=== PATIENT | male | born 1935 | race Caucasian/White ===

== ENCOUNTER 2017-03-31 09:25 | Inpatient (IN) | payer MEDICARE, OTHER ==
[2017-03-31] VITALS (12 sets, daily range): BP systolic 62–113; BP diastolic 51–84
[~2017-03-31] VITALS: Ht 170.2 cm; Wt 55.0 kg
[~2017-03-31 09:25] MED LIST: ASPI-630 PO; ATOR40TA59 PO; CIPR500T94 PO; FINA5TAB4 PO; FURO20TA3 PO; METO25TA9 PO; OLOD4MIS2 IH; TAMS0.4C2 PO
[2017-03-31] MEDS ORDERED: IV NORMAL SALINE 1000ML BAG 1,000 ML IV SCH (09:32)
[2017-03-31 09:42] LABS: BASO % 0 % (0-3); EOS % 0 % (0-3); HEMOGLOBIN 11.5 g/dL (13.0-17.5); LYMPH # 0.3 x10^3/uL (1.0-4.8); LYMPH % 3 % (24-48); MEAN CORPUSCULAR HEMOGLOBIN 29 pg (25-35); MEAN CORPUSCULAR HGB CONC 33 g/dL (31-37); MEAN CORPUSCULAR VOLUME 89 fL (79-100); MONO % 4 % (0-9); NEUT % 92 % (31-73); PLATELET COUNT 181 x10^3/uL (140-400); RED BLOOD COUNT 3.95 x10^6/uL (4.30-5.70); RED CELL DISTRIBUTION WIDTH 16.4 % (11.5-14.5); WHITE BLOOD COUNT 9.1 x10^3/uL (4.0-11.0)
[2017-03-31] MEDS ORDERED: fentaNYL PF VIAL 100 MCG/2 ML VIAL IV ONE (09:45)
[2017-03-31] MEDS ORDERED: methylPREDNISolone SOD SUCC PF 125 MG/2 ML VIAL. IV ONE (09:45)
[2017-03-31] MEDS ORDERED: IPRATRPIUM/ALBUTEROL 0.5/2.5MG 3 ML NEBU. NEB ONE (09:45)
--- NOTE | 2017-03-31 09:46 | PHYS DOC ---
Past Medical History Past Medical History: CAD, Cancer, CHF, COPD, [place] Additional Past Medical Histor: breast ca Past Surgical History: Cancer Surgery, Other Additional Past Surgical Histo: heart stents Alcohol Use: None Drug Use: None Adult General Chief Complaint Chief Complaint: SHORTNESS OF BREATH HPI HPI Patient is a 81 year old male who presents by EMS for dyspnea. He was brought from home with respiratory distress. He notes gradually worsening cough and dyspnea for the past week. He wears NC 4.5L at home and was found to be in upper 80s with increased work of breathing, so was placed on CPAP. EMS also placed nitro paste to chest wall for suspected Pulm Edema with CHF; this was removed upon arrival for hypotension. He states he is having trouble with his home O2 machine. He denies sputum production, hemoptysis, rhinorrhea, nasal congestion, sore throat, chest pain, back pain, palpitations, diaphoresis, lightheadedness, nausea or vomiting, fever or chills, pain or swelling, abdominal pain, diarrhea, dysuria. Review of Systems Review of Systems Constitutional: Denies fever or chills [] Eyes: Denies change in visual acuity, redness, or eye pain [] HENT: Denies nasal congestion or sore throat [] Respiratory: Has cough and shortness of breath [] Cardiovascular: No additional information not addressed in HPI [] GI: Denies abdominal pain, nausea, vomiting, bloody stools or diarrhea [] : Denies dysuria or hematuria [] Musculoskeletal: Denies back pain or joint pain [] Integument: Denies rash or skin lesions [] Neurologic: Denies headache, focal weakness or sensory changes [] Endocrine: Denies polyuria or polydipsia [] Current Medications Current Medications Current Medications Medications (Trade) Dose Ordered Sig/South Start Time Stop Time Status Last Admin Dose Admin Albuterol/ Ipratropium (Duoneb) 3 ml 1X ONCE 03/31/17 09:45 03/31/17 09:46 DC 03/31/17 09:40 3 ML Fentanyl Citrate (Fentanyl 2ml Vial) 25 mcg 1X ONCE 03/31/17 09:45 03/31/17 09:46 DC 03/31/17 09:39 25 MCG Levofloxacin/ Dextrose 100 ml @ 100 mls/hr 1X ONCE 03/31/17 10:45 03/31/17 11:44 DC 03/31/17 11:04 100 MLS/HR Levofloxacin/ Dextrose (Levaquin Per Pharmacy) 1 each PRN DAILY PRN 03/31/17 10:30 UNV Methylprednisolone Sodium Succinate (SOLU-Medrol 125MG VIAL) 125 mg 1X ONCE 03/31/17 09:45 03/31/17 09:46 DC 03/31/17 09:40 125 MG Piperacillin Sod/ Tazobactam Sod (Zosyn Per Pharmacy) 1 each PRN DAILY PRN 03/31/17 10:30 UNV Sodium Chloride 1,000 ml @ 125 mls/hr Q8H 03/31/17 10:30 03/31/17 13:19 03/31/17 11:15 125 MLS/HR Vancomycin HCl (Vanco Per Pharmacy) 1 each PRN DAILY PRN 03/31/17 10:30 UNV Allergies Allergies Allergies Coded Allergies Type Severity Reaction Last Updated Verified No Known Drug Allergies 02/02/17 No Physical Exam Physical Exam Constitutional: Thin, severe distress, non-toxic appearance. [] HENT: Normocephalic, atraumatic, bilateral external ears normal, oropharynx moist, no oral exudates, nose normal. [] Eyes: PERRLA, EOMI, conjunctiva normal, no discharge. [] Neck: Normal range of motion, supple, no stridor. [] Cardiovascular: Regular tachycardia [] Lungs & Thorax: Bilateral course breath sounds, frequent wet cough, tachypnea, speaks in 2 word sentences, mild wheezing [] Abdomen: Bowel sounds normal, soft, no tenderness. [] Skin: Warm, dry, no erythema, no rash. [] Back: No tenderness, no CVA tenderness. [] Extremities: No tenderness, ROM intact, trace bilateral pretibial edema. [] Neurologic: Alert and oriented X 3, normal motor function, normal sensory function, no focal deficits noted. [] Psychologic: Affect normal, judgement normal, mood normal. [] Current Patient Data Vital Signs Vital Signs Date Time Temp Pulse Resp B/P (MAP) Pulse Ox O2 Delivery O2 Flow Rate FiO2 03/31/17 10:33 95 30 77/65 (69) 96 Venturi Mask 03/31/17 09:28 99.9 4.0 99.9 Lab Values Laboratory Tests Test 03/31/17 09:32 03/31/17 10:45 White Blood Count 9.1 x10^3/uL (4.0-11.0) Red Blood Count 3.95 x10^6/uL (4.30-5.70) L Hemoglobin 11.5 g/dL (13.0-17.5) L Hematocrit 35.0 % (39.0-53.0) L Mean Corpuscular Volume 89 fL (79-100) Mean Corpuscular Hemoglobin 29 pg (25-35) Mean Corpuscular Hemoglobin Concent 33 g/dL (31-37) Red Cell Distribution Width 16.4 % (11.5-14.5) H Platelet Count 181 x10^3/uL (140-400) Neutrophils (%) (Auto) 92 % (31-73) H Lymphocytes (%) (Auto) 3 % (24-48) L Monocytes (%) (Auto) 4 % (0-9) Eosinophils (%) (Auto) 0 % (0-3) Basophils (%) (Auto) 0 % (0-3) Neutrophils # (Auto) 8.4 x10^3uL (1.8-7.7) H Lymphocytes # (Auto) 0.3 x10^3/uL (1.0-4.8) L Monocytes # (Auto) 0.3 x10^3/uL (0.0-1.1) Eosinophils # (Auto) 0.0 x10^3/uL (0.0-0.7) Basophils # (Auto) 0.0 x10^3/uL (0.0-0.2) Platelet Estimate Pending Sodium Level 137 mmol/L (136-145) Potassium Level 4.9 mmol/L (3.5-5.1) Chloride Level 100 mmol/L (98-107) Carbon Dioxide Level 27 mmol/L (21-32) Anion Gap 10 (6-14) Blood Urea Nitrogen 20 mg/dL (8-26) Creatinine 1.2 mg/dL (0.7-1.3) Estimated GFR (Cockcroft-Gault) 58.1 BUN/Creatinine Ratio 17 (6-20) Glucose Level 125 mg/dL (70-99) H Lactic Acid Level 3.4 mmol/L (0.4-2.0) H Calcium Level 9.9 mg/dL (8.5-10.1) Total Bilirubin 0.9 mg/dL (0.2-1.0) Aspartate Amino Transferase (AST) 49 U/L (15-37) H Alanine Aminotransferase (ALT) 35 U/L (16-63) Alkaline Phosphatase 130 U/L (46-116) H Troponin I Quantitative 0.433 ng/mL (0.000-0.055) JD-Iuq-B-Type Natriuretic Peptide 93962 pg/mL (0-449) H Total Protein 7.4 g/dL (6.4-8.2) Albumin 3.0 g/dL (3.4-5.0) L Albumin/Globulin Ratio 0.7 (1.0-1.7) L O2 Saturation 96 % (92-99) Arterial Blood pH 7.43 (7.35-7.45) Arterial Blood pCO2 at Patient Temp 33 mmHg (35-46) L Arterial Blood pO2 at Patient Temp 90 mmHg (65-108) Arterial Blood HCO3 22 mmol/L (21-28) Arterial Blood Base Excess -2 mmol/L (-3-3) Oxyhemoglobin 95.5 % Methemoglobin 0.6 % (0.0-1.9) Carbon Monoxide, Quantitative 0.1 % (0.0-1.9) FiO2 40.0 Laboratory Tests 03/31/17 09:32 Laboratory Tests 03/31/17 09:32 EKG EKG EKG as interpreted by me as sinus tachycardia, rate 120, depressions in lateral leads, no ST elevations, PVCs Radiology/Procedures Radiology/Procedures Chest x-ray as interpreted by me as mild pulmonary edema bilaterally, no focal infiltrate Course & Med Decision Making Course & Med Decision Making Pertinent Labs and Imaging studies reviewed. (See chart for details) He presented respiratory distress and was placed on BiPAP. He was weaned off of BiPAP to Venturi mask in the emergency department. His work of breathing has improved, but he still has frequent cough. He was given IV fluids for concern of severe sepsis associated with COPD exacerbation. He was given broad spectrum antibiotics for this as well. His laboratory evaluation reveals elevated proBNP and elevated troponin, concerning for heart strain associated with acute on chronic hypoxemic respiratory failure. He has left shift and lactic acidosis. ABG reveals hypoxemia. He will be admitted to the ICU for further therapy. He was given dose of lovenox for elevated troponin. Discussed case with ANA Armenta cardiology, who recommends slowing fluids and starting levophed for hypotension. Discussed case with Dr. Watt, who will admit. Scottie Disclaimer Maryon Disclaimer This electronic medical record was generated, in whole or in part, using a voice recognition dictation system. Critical Care Time Critical care time was 40 minutes exclusive of procedures. Departure Departure Impression: Primary Impression: Respiratory failure Additional Impressions: Severe sepsis COPD exacerbation CHF exacerbation Disposition: 09 ADMITTED INPATIENT Condition: CRITICAL Referrals: UNKNOWN PCP NAME (PCP) Problem Qualifiers Primary Impression: Respiratory failure Chronicity: acute on chronic Respiratory failure complication: hypoxia Qualified Codes: J96.21 - Acute and chronic respiratory failure with hypoxia Additional Impressions: CHF exacerbation Congestive heart failure type: unspecified congestive heart failure type Qualified Codes: I50.9 - Heart failure, unspecified Jonnathan WHITFIELD MD Mar 31, 2017 09:46
[2017-03-31 09:53] LABS: CALCIUM 9.9 mg/dL (8.5-10.1); CREATININE 1.2 mg/dL (0.7-1.3); GFR 58.1; POTASSIUM 4.9 mmol/L (3.5-5.1)
[2017-03-31 09:59] LABS: ALBUMIN/GLOBULIN RATIO 0.7 (1.0-1.7); TOTAL BILIRUBIN 0.9 mg/dL (0.2-1.0); TOTAL PROTEIN 7.4 g/dL (6.4-8.2)
--- NOTE | 2017-03-31 09:59 | RAD ---
Portable chest, 03/31/2017: History: Cough, dyspnea Comparison is made to a study from 02/02/2017. The heart is at the upper limits of normal in size. There is calcific plaquing of the aorta. The pulmonary vascularity is prominent with loss of vascular margination. There are minimal perihilar opacities. The findings suggest mild parahilar-perivascular pulmonary edema. A component of fibrosis cannot be excluded. More extensive basilar opacities were present on the previous study. No definite pleural fluid is seen. IMPRESSION: Mild ongoing or recurrent pulmonary edema, improved since 02/02/2017.
--- NOTE | 2017-03-31 10:05 | EKG ---
[address] [place] [address] Test Date: 2017-03-31 Test Time: 10:15:14 Pat Name: ZEESHAN TAI Department: Room: Gender: M [employer] Member: : 1935 Requested By: Jonnathan WHITFIELD Order Number: [id number] Reading MD: Jenise Thompson Measurements Intervals Admire Rate: 120 P: 52 IA: 120 QRS: 21 QRSD: 90 T: 93 QT: 322 QTc: 460 Interpretive Statements SINUS TACHYCARDIA VENTRICULAR PREMATURE COMPLEX(ES) LOW LIMB LEAD VOLTAGE ST & T ABNORMALITY, CONSIDER ANTEROLATERAL ISCHEMIA Electronically Signed On 04-02-2017 22:36:27 CDT by Jenise Thompson
[2017-03-31] MEDS ORDERED: IV NORMAL SALINE 1000ML BAG 1,620 ML IV SCH (10:19)
[2017-03-31] MEDS: IV NORMAL SALINE 1000ML BAG 1,000 ML IV SCH ×2 (10:30→11:15)
[2017-03-31] MEDS ORDERED: PIP/TAZO PER PHARMACY MC PRN (10:30)
[2017-03-31] MEDS ORDERED: levOFLOXacin PER PHARMACY. MC PRN (10:30)
[2017-03-31 10:46] LABS: BASE EXCESS COOX -2 mmol/L (-3-3); CARBON MONOXIDE 0.1 % (0.0-1.9); HCO3 COOX 22 mmol/L (21-28); METHEMOGLOBIN 0.6 % (0.0-1.9); OXYHEMOGLOBIN 95.5 %; PCO2 COOX 33 mmHg (35-46); PH COOX 7.43 (7.35-7.45); PO2 COOX 90 mmHg (65-108); SAT O2 COOX 96 % (92-99); TOTAL HEMOGLOBIN 11.2 g/dL
--- NOTE | 2017-03-31 10:46 | ACF ---
Admission Forms Criteria RESPIRATORY FAILURE [facility] Clinical Indications for Admission to Inpatient Care (Place 'X' for any and all applicable criteria): Hospital admission is needed for appropriate care of the patient because of acute respiratory failure or insufficiency as indicated by ANY ONE of the following(1)(2)(3)(4)(5)(6)(7)(8): [X]I. Mechanical ventilation needed (acute invasive or noninvasive) [ ]II. Severe ventilation deficit as indicated by ANY ONE of the following (9) [ ]a) Respiratory acidosis (pH less than 7.32 and partial pressure of carbon dioxide greater than 40 mm Hg (5.3 kPa)) [ ]b) Partial pressure of carbon dioxide greater than 44 mm Hg (5.9 kPa ) (new) [ ]c) Airflow measurements less than 25% of predicted (eg, peak expiratory flow rate less than 100 L/minute) [ ]d) Forced vital capacity less than 15 mL/kg of ideal body weight, or 50% decrease in vital capacity from baseline [ ]III. Noncardiac pulmonary edema not resolving with rapid emergency treatment (8) [ ]IV. Severe respiratory distress as indicated by ANY ONE of the following: [ ]a) Severe tachypnea (respiratory rate greater than 30, greater than 45 for 6-month-old, greater than 60 for ) [ ]b) Severe hypoxemia (partial pressure of oxygen less than 50 mm Hg ( 6.7 kPa) on greater than 50% oxygen or partial pressure of oxygen to FIO2 ratio less than 200) [ ]c) Mental status deterioration from respiratory disease [ ]V. Airway obstruction or inadequate protection [A](10)(11) The original [employer] content created by [employer] has been revised. The portions of the content which have been revised are identified through the use of italic text or in bold, and [employer] has neither reviewed nor approved the modified material. All other unmodified content is copyright [employer]. Please see references footnoted in the original [employer] edition 2016 Admission Criteria Met?: Yes KATHY THAPA Mar 31, 2017 10:46
[2017-03-31] MEDS ORDERED: VANCOMYCIN 1.25 GM in IV NORMAL SALINE 250ML 250 ML IV ONE (11:00)
[2017-03-31] MEDS ORDERED: PIPERACILLIN/TAZOBACTAM 3.375 GM in IV NORMAL SALINE 50ML 50 ML IV ONE (11:00)
[2017-03-31] MEDS ORDERED: ACETAMINOPHEN 325 MG TABLET. PO PRN (11:15)
[2017-03-31] MEDS ORDERED: ONDANSETRON PF 4 MG/2 ML VIAL. IV PRN (11:15)
[2017-03-31] MEDS ORDERED: NOREPINEPHRIN PREMIX 250 ML IV ONE ×2 (11:15→16:22)
[2017-03-31] MEDS ORDERED: fentaNYL PF VIAL 100 MCG/2 ML VIAL IV PRN (11:15)
[2017-03-31 12:36] LABS: % EOS 1 % (0-5); PLT ESTIMATE ADEQUATE (ADEQUATE)
[2017-03-31 12:37] LABS: ANISOCYTOSIS PRESENT
[2017-03-31] MEDS ORDERED: FUROSEMIDE 20 MG/2 ML VIAL. IVP ONE ×2 (12:45→18:00)
[2017-03-31] MEDS ORDERED: DIGOXIN IV 500 MCG/2 ML AMPUL. IV ONE (12:45)
--- NOTE | 2017-03-31 13:12 | PDOC2 ---
CARDIAC CONSULT DATE OF CONSULT Date of Consult DATE: 03/31/17 TIME: 12:42 REASON FOR CONSULT Reason for Consult: CHF exacerbation REFERRING PHYSICIAN Referring Physician: Dr. Alessandro Juarez SOURCE Source: Chart review, Patient HISTORY OF PRESENT ILLNESS HISTORY OF PRESENT ILLNESS 81 year old male admitted through the ER with hypoxia and dyspnea. Progressive symptoms over the past week. Discharge 02/02/2017 after 5 day stay for NSTEMI, type II, acute respiratory failure and acute CHF. LVEF ~ 20% with severe global hypokinesis. EKG sinus tach and tele now with PAF. Troponin level 0.433 in the setting of sepsis and acute heart failure. Hypotensive and started on Levophed in ER. Denies CP and recent lower extremity edema. Reason for Visit: acute CHF PAST MEDICAL HISTORY Cardiovascular: AFIB (paroxysmal), CAD (remote history of stenting - details unknown), CHF (chronic systolic; LVEF ~ 20% with severe global hypokinesis), HTN , [place] (NSTEMI - 01/2017; type II), Hyperlipidemia, Other (presumed ischemic cardiomyopathy) Pulmonary: COPD, Other (acute/chronic resp failure; severe pulmonary HTN with PA of 62 mm Hg) CENTRAL NERVOUS SYSTEM: Other (none known) GI: No pertinent hx Heme/Onc: Cancer Hepatobiliary: No pertinent hx Psych: No pertinent hx Musculoskeletal: Osteoarthritis Rheumatologic: No pertinent hx Infectious disease: No pertinent hx ENT: No pertinent hx Renal/: No pertinent hx Endocrine: No pertinent hx Dermatology: No pertinent hx PAST SURGICAL HISTORY Past Surgical History: Other ([facility] with stents to unknown targets) FAMILY HISTORY Family History: Family History Unknown SOCIAL HISTORY Smoke: <1 pack per day ALCOHOL: none Drugs: None Lives: Roommate CURRENT MEDICATIONS CURRENT MEDICATIONS Current Medications Medications (Trade) Dose Ordered Sig/South Route PRN Reason Start Time Stop Time Status Last Admin Dose Admin Sodium Chloride 1,000 ml @ 500 mls/hr Q2H IV 03/31/17 09:32 03/31/17 11:31 DC 03/31/17 09:38 Albuterol/ Ipratropium (Duoneb) 3 ml 1X ONCE NEB 03/31/17 09:45 03/31/17 09:46 DC 03/31/17 09:40 Methylprednisolone Sodium Succinate (SOLU-Medrol 125MG VIAL) 125 mg 1X ONCE IV 03/31/17 09:45 03/31/17 09:46 DC 03/31/17 09:40 Fentanyl Citrate (Fentanyl 2ml Vial) 25 mcg 1X ONCE IV 03/31/17 09:45 03/31/17 09:46 DC 03/31/17 09:39 Sodium Chloride 1,620 ml @ 540 mls/hr Q3H IV 03/31/17 10:19 03/31/17 10:25 DC 03/31/17 10:23 Sodium Chloride 1,000 ml @ 125 mls/hr Q8H IV 03/31/17 10:30 03/31/17 13:19 03/31/17 11:15 Levofloxacin/ Dextrose 100 ml @ 100 mls/hr 1X ONCE IV 03/31/17 10:45 03/31/17 11:44 DC 03/31/17 11:04 Vancomycin HCl 1.25 gm/Sodium Chloride 250 ml @ 166.667 mls/hr 1X ONCE IV 03/31/17 11:00 03/31/17 12:29 DC 03/31/17 12:23 Piperacillin Sod/ Tazobactam Sod 3.375 gm/Sodium Chloride 50 ml @ 100 mls/hr 1X ONCE IV 03/31/17 11:00 03/31/17 11:29 DC 03/31/17 10:58 Enoxaparin Sodium (Lovenox 60mg Syringe) 50 mg 1X ONCE SQ 03/31/17 11:15 03/31/17 11:18 DC 03/31/17 11:31 Norepinephrine Bitartrate 250 ml @ 0 mls/hr 1X ONCE IV 03/31/17 11:15 03/31/17 11:19 DC 03/31/17 11:26 ALLERGIES ALLERGIES: Coded Allergies: No Known Drug Allergies (Unverified , 02/02/17) ROS Review of System ROS limited by profound dyspnea with speech; see HPI PHYSICAL EXAM General: Alert, Cooperative, severe distress HEENT: Atraumatic, PERRLA Lungs: Other (wheezing in upper lobes anteriorly; crackles in bases anteriorly) Heart: Normal S1, Normal S2, Other (2/6 systolic murmur LLSB; unable to auscultate for carotid bruits over respiratory sounds) Abdomen: Normal bowel sounds, Soft Extremities: No edema, Normal pulses Skin: No rashes Neuro: Normal speech Psych/Mental Status: Mood NL MUSCULOSKELETAL: Osteoarthritic changes both hands VITALS VITALS Vital Signs Date Time Temp Pulse Resp B/P (MAP) Pulse Ox O2 Delivery O2 Flow Rate FiO2 03/31/17 12:30 30 94 Venturi Mask 03/31/17 12:20 110 78/58 (65) 12.0 03/31/17 11:56 98.5 98.5 LABS Lab: Laboratory Tests Test 03/31/17 09:32 03/31/17 10:45 White Blood Count 9.1 x10^3/uL (4.0-11.0) Red Blood Count 3.95 x10^6/uL (4.30-5.70) Hemoglobin 11.5 g/dL (13.0-17.5) Hematocrit 35.0 % (39.0-53.0) Mean Corpuscular Volume 89 fL (79-100) Mean Corpuscular Hemoglobin 29 pg (25-35) Mean Corpuscular Hemoglobin Concent 33 g/dL (31-37) Red Cell Distribution Width 16.4 % (11.5-14.5) Platelet Count 181 x10^3/uL (140-400) Neutrophils (%) (Auto) 92 % (31-73) Lymphocytes (%) (Auto) 3 % (24-48) Monocytes (%) (Auto) 4 % (0-9) Eosinophils (%) (Auto) 0 % (0-3) Basophils (%) (Auto) 0 % (0-3) Neutrophils # (Auto) 8.4 x10^3uL (1.8-7.7) Lymphocytes # (Auto) 0.3 x10^3/uL (1.0-4.8) Monocytes # (Auto) 0.3 x10^3/uL (0.0-1.1) Eosinophils # (Auto) 0.0 x10^3/uL (0.0-0.7) Basophils # (Auto) 0.0 x10^3/uL (0.0-0.2) Segmented Neutrophils % 89 % (35-66) Band Neutrophils % 5 % (0-9) Lymphocytes % 4 % (24-48) Monocytes % 1 % (0-10) Eosinophils % 1 % (0-5) Platelet Estimate Adequate (ADEQUATE) Anisocytosis Present Sodium Level 137 mmol/L (136-145) Potassium Level 4.9 mmol/L (3.5-5.1) Chloride Level 100 mmol/L (98-107) Carbon Dioxide Level 27 mmol/L (21-32) Anion Gap 10 (6-14) Blood Urea Nitrogen 20 mg/dL (8-26) Creatinine 1.2 mg/dL (0.7-1.3) Estimated GFR (Cockcroft-Gault) 58.1 BUN/Creatinine Ratio 17 (6-20) Glucose Level 125 mg/dL (70-99) Lactic Acid Level 3.4 mmol/L (0.4-2.0) Calcium Level 9.9 mg/dL (8.5-10.1) Total Bilirubin 0.9 mg/dL (0.2-1.0) Aspartate Amino Transf (AST/SGOT) 49 U/L (15-37) Alanine Aminotransferase (ALT/SGPT) 35 U/L (16-63) Alkaline Phosphatase 130 U/L (46-116) Troponin I Quantitative 0.433 ng/mL (0.000-0.055) ZY-Udk-D-Type Natriuretic Peptide 57394 pg/mL (0-449) Total Protein 7.4 g/dL (6.4-8.2) Albumin 3.0 g/dL (3.4-5.0) Albumin/Globulin Ratio 0.7 (1.0-1.7) O2 Saturation 96 % (92-99) Arterial Blood pH 7.43 (7.35-7.45) Arterial Blood pCO2 at Patient Temp 33 mmHg (35-46) Arterial Blood pO2 at Patient Temp 90 mmHg (65-108) Arterial Blood HCO3 22 mmol/L (21-28) Arterial Blood Base Excess -2 mmol/L (-3-3) Oxyhemoglobin 95.5 % Methemoglobin 0.6 % (0.0-1.9) Carbon Monoxide, Quantitative 0.1 % (0.0-1.9) FiO2 40.0 IMAGES IMAGES CXR: Comparison is made to a study from 02/02/2017. The heart is at the upper limits of normal in size. There is calcific plaquing of the aorta. The pulmonary vascularity is prominent with loss of vascular margination. There are minimal perihilar opacities. The findings suggest mild parahilar-perivascular pulmonary edema. A component of fibrosis cannot be excluded. More extensive basilar opacities were present on the previous study. No definite pleural fluid is seen. IMPRESSION: Mild ongoing or recurrent pulmonary edema, improved since 02/02/2017. EKG EKG no acute changes; ST tele with PAF ECHOCARDIOGRAM ECHOCARDIOGRAM 02/02/2017: TTE: The Left Ventricle is mild to moderately dilated. Left ventricle systolic function is severely impaired. The Ejection Fraction is less than 20%. There is severe global hypokinesis of the left ventricle. There is no significant aortic valvular stenosis. Doppler and Color Flow revealed no significant aortic regurgitation. Doppler and Color-flow revealed mild to moderate mitral regurgitation. Doppler and Color Flow revealed mild to moderate tricuspid regurgitation. There is severe pulmonary hypertension. The PA pressure was estimated at 62 mmHg. There is no evidence of significant pericardial effusion. ASSESSMENT/PLAN ASSESSMENT/PLAN 1. acute on chronic systolic heart failure LVEF depressed about 20% was bolused with ~ 1500 cc in ER due to sepsis protocol CXR with CHF (increase pulm vascularity) and NT-proBNP > 21K give IV furosemide 20 mg IV now - may need to give albumin to move fluid to intravascular space for maximal diuresis or try bumex re-evaluate later today and consider repeating IV diuretics then cheung cath as pt weak, dyspneic and giving IV diuretics IV digoxin X 1 for symptom relief 2. ? sepsis lactic acid 3.4; WBC WNL check UA with culture - treated for UTI in January vasopressors for BP support 3. PAF rates to the 130s will give digoxin 0.5 mg IV X 1 - address heart rate and CHF 4. elevated troponin in the setting of sepsis, acute heart failure, acute respiratory failure and tachycardia severity of illness precludes aggressive evaluation/intervention 5. acute/chronic respiratory failure/severe pulm HTN on venti mask defer to pulm 6. CAD remote history of stents to unknown targets 7. presumed ischemic cardiomyopathy previously treated with BB; BP would not support ACEI Prognosis guarded; consult palliative care - pt would benefit from hospice ? DNR in the outpatient setting - defer to primary service Problems: JULIANO ORTIZ CERTIFIED PROCEDURAL CODER Mar 31, 2017 13:12
[2017-03-31] MEDS: VANCOMYCIN PER PHARMACY MC PRN (13:14)
[2017-03-31 14:17] LABS: BILIRUBIN,URINE NEGATIVE (NEG); GLUCOSE,URINE NEGATIVE (NEG); NITRITE,URINE NEGATIVE (NEG); PH,URINE 5.5; PROTEIN,URINE NEGATIVE (NEG-TRACE); UROBILINOGEN,URINE 0.2 mg/dL (0.2 mg/dL)
[2017-03-31 14:40] LABS: BACTERIA,URINE 0 /HPF (0-FEW); RBC,URINE 0 /HPF (0-2); SQUAMOUS EPITHELIAL CELL,UR FEW /LPF
[2017-03-31] MEDS ORDERED: PRAM0.255 PO (14:41)
[2017-03-31] MEDS ORDERED: FURO-68 PO (14:41)
[2017-03-31] MEDS ORDERED: TIOT18CA IH (14:41)
[2017-03-31] MEDS ORDERED: LISI2.5T PO (14:41)
--- NOTE | 2017-03-31 15:33 | PDOC ---
PULMONARY PROGRESS NOTES Vitals Vital Signs Date Time Temp Pulse Resp B/P (MAP) Pulse Ox O2 Delivery O2 Flow Rate FiO2 03/31/17 14:00 128 41 62/51 (55) 87 Venturi Mask 12.0 03/31/17 11:56 98.5 98.5 Lungs: Clear, Other Cardiovascular: S1, S2 Abdomen: Soft Labs Laboratory Tests Test 03/31/17 09:32 03/31/17 10:45 03/31/17 12:55 03/31/17 13:10 White Blood Count 9.1 x10^3/uL (4.0-11.0) Red Blood Count 3.95 x10^6/uL (4.30-5.70) Hemoglobin 11.5 g/dL (13.0-17.5) Hematocrit 35.0 % (39.0-53.0) Mean Corpuscular Volume 89 fL (79-100) Mean Corpuscular Hemoglobin 29 pg (25-35) Mean Corpuscular Hemoglobin Concent 33 g/dL (31-37) Red Cell Distribution Width 16.4 % (11.5-14.5) Platelet Count 181 x10^3/uL (140-400) Neutrophils (%) (Auto) 92 % (31-73) Lymphocytes (%) (Auto) 3 % (24-48) Monocytes (%) (Auto) 4 % (0-9) Eosinophils (%) (Auto) 0 % (0-3) Basophils (%) (Auto) 0 % (0-3) Neutrophils # (Auto) 8.4 x10^3uL (1.8-7.7) Lymphocytes # (Auto) 0.3 x10^3/uL (1.0-4.8) Monocytes # (Auto) 0.3 x10^3/uL (0.0-1.1) Eosinophils # (Auto) 0.0 x10^3/uL (0.0-0.7) Basophils # (Auto) 0.0 x10^3/uL (0.0-0.2) Segmented Neutrophils % 89 % (35-66) Band Neutrophils % 5 % (0-9) Lymphocytes % 4 % (24-48) Monocytes % 1 % (0-10) Eosinophils % 1 % (0-5) Platelet Estimate Adequate (ADEQUATE) Anisocytosis Present Sodium Level 137 mmol/L (136-145) Potassium Level 4.9 mmol/L (3.5-5.1) Chloride Level 100 mmol/L (98-107) Carbon Dioxide Level 27 mmol/L (21-32) Anion Gap 10 (6-14) Blood Urea Nitrogen 20 mg/dL (8-26) Creatinine 1.2 mg/dL (0.7-1.3) Estimated GFR (Cockcroft-Gault) 58.1 BUN/Creatinine Ratio 17 (6-20) Glucose Level 125 mg/dL (70-99) Lactic Acid Level 3.4 mmol/L (0.4-2.0) 3.1 mmol/L (0.4-2.0) Calcium Level 9.9 mg/dL (8.5-10.1) Magnesium Level 2.1 mg/dL (1.8-2.4) Total Bilirubin 0.9 mg/dL (0.2-1.0) Aspartate Amino Transf (AST/SGOT) 49 U/L (15-37) Alanine Aminotransferase (ALT/SGPT) 35 U/L (16-63) Alkaline Phosphatase 130 U/L (46-116) Troponin I Quantitative 0.433 ng/mL (0.000-0.055) 3.585 ng/mL (0.000-0.055) KD-Krq-C-Type Natriuretic Peptide 13843 pg/mL (0-449) Total Protein 7.4 g/dL (6.4-8.2) Albumin 3.0 g/dL (3.4-5.0) Albumin/Globulin Ratio 0.7 (1.0-1.7) O2 Saturation 96 % (92-99) Arterial Blood pH 7.43 (7.35-7.45) Arterial Blood pCO2 at Patient Temp 33 mmHg (35-46) Arterial Blood pO2 at Patient Temp 90 mmHg (65-108) Arterial Blood HCO3 22 mmol/L (21-28) Arterial Blood Base Excess -2 mmol/L (-3-3) Oxyhemoglobin 95.5 % Methemoglobin 0.6 % (0.0-1.9) Carbon Monoxide, Quantitative 0.1 % (0.0-1.9) FiO2 40.0 Urine Collection Type Unknown Urine Color Keila Urine Clarity Turbid Urine pH 5.5 Urine Specific [place] 1.025 Urine Protein Negative mg/dL (NEG-TRACE) Urine Glucose (UA) Negative mg/dL (NEG) Urine Ketones (Stick) Negative mg/dL (NEG) Urine Blood Negative (NEG) Urine Nitrite Negative (NEG) Urine Bilirubin Negative (NEG) Urine Urobilinogen Dipstick 0.2 mg/dL (0.2 mg/dL) Urine Leukocyte Esterase Negative (NEG) Urine RBC 0 /HPF (0-2) Urine WBC 1-4 /HPF (0-4) Urine Squamous Epithelial Cells Few /LPF Urine Transitional Epithelial Cells Few /LPF Urine Amorphous Sediment Present /HPF Urine Bacteria 0 /HPF (0-FEW) Urine Hyaline Casts Many /HPF Urine Mucus Mod /LPF Laboratory Tests Test 03/31/17 09:32 03/31/17 10:45 03/31/17 12:55 03/31/17 13:10 White Blood Count 9.1 x10^3/uL (4.0-11.0) Red Blood Count 3.95 x10^6/uL (4.30-5.70) Hemoglobin 11.5 g/dL (13.0-17.5) Hematocrit 35.0 % (39.0-53.0) Mean Corpuscular Volume 89 fL (79-100) Mean Corpuscular Hemoglobin 29 pg (25-35) Mean Corpuscular Hemoglobin Concent 33 g/dL (31-37) Red Cell Distribution Width 16.4 % (11.5-14.5) Platelet Count 181 x10^3/uL (140-400) Neutrophils (%) (Auto) 92 % (31-73) Lymphocytes (%) (Auto) 3 % (24-48) Monocytes (%) (Auto) 4 % (0-9) Eosinophils (%) (Auto) 0 % (0-3) Basophils (%) (Auto) 0 % (0-3) Neutrophils # (Auto) 8.4 x10^3uL (1.8-7.7) Lymphocytes # (Auto) 0.3 x10^3/uL (1.0-4.8) Monocytes # (Auto) 0.3 x10^3/uL (0.0-1.1) Eosinophils # (Auto) 0.0 x10^3/uL (0.0-0.7) Basophils # (Auto) 0.0 x10^3/uL (0.0-0.2) Segmented Neutrophils % 89 % (35-66) Band Neutrophils % 5 % (0-9) Lymphocytes % 4 % (24-48) Monocytes % 1 % (0-10) Eosinophils % 1 % (0-5) Platelet Estimate Adequate (ADEQUATE) Anisocytosis Present Sodium Level 137 mmol/L (136-145) Potassium Level 4.9 mmol/L (3.5-5.1) Chloride Level 100 mmol/L (98-107) Carbon Dioxide Level 27 mmol/L (21-32) Anion Gap 10 (6-14) Blood Urea Nitrogen 20 mg/dL (8-26) Creatinine 1.2 mg/dL (0.7-1.3) Estimated GFR (Cockcroft-Gault) 58.1 BUN/Creatinine Ratio 17 (6-20) Glucose Level 125 mg/dL (70-99) Lactic Acid Level 3.4 mmol/L (0.4-2.0) 3.1 mmol/L (0.4-2.0) Calcium Level 9.9 mg/dL (8.5-10.1) Magnesium Level 2.1 mg/dL (1.8-2.4) Total Bilirubin 0.9 mg/dL (0.2-1.0) Aspartate Amino Transf (AST/SGOT) 49 U/L (15-37) Alanine Aminotransferase (ALT/SGPT) 35 U/L (16-63) Alkaline Phosphatase 130 U/L (46-116) Troponin I Quantitative 0.433 ng/mL (0.000-0.055) 3.585 ng/mL (0.000-0.055) JM-Pvv-G-Type Natriuretic Peptide 85059 pg/mL (0-449) Total Protein 7.4 g/dL (6.4-8.2) Albumin 3.0 g/dL (3.4-5.0) Albumin/Globulin Ratio 0.7 (1.0-1.7) O2 Saturation 96 % (92-99) Arterial Blood pH 7.43 (7.35-7.45) Arterial Blood pCO2 at Patient Temp 33 mmHg (35-46) Arterial Blood pO2 at Patient Temp 90 mmHg (65-108) Arterial Blood HCO3 22 mmol/L (21-28) Arterial Blood Base Excess -2 mmol/L (-3-3) Oxyhemoglobin 95.5 % Methemoglobin 0.6 % (0.0-1.9) Carbon Monoxide, Quantitative 0.1 % (0.0-1.9) FiO2 40.0 Urine Collection Type Unknown Urine Color Keila Urine Clarity Turbid Urine pH 5.5 Urine Specific [place] 1.025 Urine Protein Negative mg/dL (NEG-TRACE) Urine Glucose (UA) Negative mg/dL (NEG) Urine Ketones (Stick) Negative mg/dL (NEG) Urine Blood Negative (NEG) Urine Nitrite Negative (NEG) Urine Bilirubin Negative (NEG) Urine Urobilinogen Dipstick 0.2 mg/dL (0.2 mg/dL) Urine Leukocyte Esterase Negative (NEG) Urine RBC 0 /HPF (0-2) Urine WBC 1-4 /HPF (0-4) Urine Squamous Epithelial Cells Few /LPF Urine Transitional Epithelial Cells Few /LPF Urine Amorphous Sediment Present /HPF Urine Bacteria 0 /HPF (0-FEW) Urine Hyaline Casts Many /HPF Urine Mucus Mod /LPF Medications Active Scripts Medications Dose Route/Sig Max Daily Dose Days Date Category Mirapex (Pramipexole Di-Hcl) 0.25 Mg Tablet 1 Tab PO QHS 03/31/17 Reported Lisinopril 2.5 Mg Tablet 1 Tab PO DAILY 03/31/17 Reported Lasix (Furosemide) 40 Mg Tablet 1 Tab PO DAILY 03/31/17 Reported Spiriva (Tiotropium Solomon) 18 Mcg Cap.w.dev 2 Inh IH DAILY 03/31/17 Reported Striverdi Respimat (Olodaterol HCl) 4 Gm Mist.inhal 4 Gm IH BID 02/02/17 Reported Aspirin 81 Mg Tab.chew 1 Tab PO DAILY 02/02/17 Reported Atorvastatin Calcium 40 Mg Tablet 40 Mg PO HS 02/02/17 Reported Tamsulosin Hcl 0.4 Mg Cap.er.24h 0.4 Mg PO BID 02/02/17 Reported Finasteride 5 Mg Tablet 5 Mg PO DAILY 02/02/17 Reported Impression . CONSULT DICTATED A/C RESP FAILURE SEC TO CHF DOUBT SEPSIS AROLDO BOWMAN MD Mar 31, 2017 15:33
--- NOTE | 2017-03-31 16:31 | PDOC2 ---
PALLIATIVE CARE Palliative Care Note Palliative Care Consult requested by Dr. 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 On Levoped. RR 39 "I want to go home" Caregiver Ifeoma Brasher here. 1625 Attempted to reach DPOA Keyon Jones--message to return call. Patient complains of Chest Pain. Fentanyl 25 mcg given IV for chest pain. 1650 Patient resting more comfortable. Will continue to treat with diuretics and Morphine. Spoke with Ifeoma. Stated patient has had poor appetite recently. Hospice was discussed at some point. Does not know final decisions about hospice support. Available to meet 10 am. tomorrow. GIULIANO FERGUSON Mar 31, 2017 16:31
[2017-03-31] MEDS: NOREPINEPHRIN PREMIX 250 ML IV PRN ×2 (16:36→20:40)
[2017-03-31] MEDS: PIPERACILLIN/TAZOBACTAM 3.375 GM in IV NORMAL SALINE 50ML 50 ML IV SCH (18:10)
--- NOTE | 2017-03-31 18:26 | HP ---
ADMIT DATE: 03/31/2017 CHIEF COMPLAINT: Shortness of breath. HISTORY OF PRESENT ILLNESS: The patient is a pleasant 81-year-old male who presented with severe shortness of breath. He is very hypoxic. He rates it a 10/10. He has tried to increase his home meds that did not work. While in the ER, we did laboratory and x-ray which have shown vascular congestion and pneumonia. He also has COPD, basically, has multifactorial respiratory failure, has been admitted to the ICU on a Ventimask. PAST MEDICAL HISTORY: COPD, CHF, atrial fibrillation, remote history of cardiac stents 20% EF, hypertension, myocardial infarction, hyperlipidemia, some type of cancer, osteoarthritis. ALLERGIES: None. FAMILY HISTORY: Diabetes, Coronary artery disease. SOCIAL HISTORY: He tried to quit smoking, no drinking or drugs. MEDICATIONS: Reviewed, please refer to the MRAD. REVIEW OF SYSTEMS: GENERAL: No history of weight change, weakness or fevers. SKIN: No bruising, hair changes or rashes. EYES: No blurred, double or loss of vision. NOSE AND THROAT: No history of nosebleeds, hoarseness or sore throat. HEART: No history of palpitations, chest pain or shortness of breath on exertion. LUNGS: He complains of shortness of breath. GASTROINTESTINAL: Denies changes in appetite, nausea, vomiting, diarrhea or constipation. GENITOURINARY: No history of frequency, urgency, hesitancy or nocturia. NEUROLOGIC: Denies history of numbness, tingling, tremor or weakness. PSYCHIATRIC: No history of panic, anxiety or depression. ENDOCRINE: No history of heat or cold intolerance, polyuria or polydipsia. EXTREMITIES: Denies muscle weakness, joint pain, pain on walking or stiffness. ALLERGIES: None. PHYSICAL EXAMINATION: VITAL SIGNS: Temperature afebrile, pulse is 110, respirations 27, blood pressure was 74/60; we just started a Levophed drip GENERAL: He is awake, very weak, gasping for air. HEART: Distant S1, S2 with a soft S3. LUNGS: Diffuse crackles. ABDOMEN: Soft, decreased bowel sounds. EXTREMITIES: 1+ edema. SKIN: No rashes. ENDOCRINE: No thyromegaly. LYMPHATICS: No cervical nodes. HEMATOPOIETIC: No bruising. LABORATORY DATA: White count 9, hemoglobin 11, platelets 181. Electrolytes pending. Troponin is 3.585, creatinine is 1.2. ASSESSMENT AND PLAN: 1. Keitm-qf-fmrbayd systolic and diastolic heart failure with a probable acute myocardial infarction with elevated troponin, but normal creatinine and respiratory failure with hypoxia. The patient has been admitted. We will monitor in the ICU, IV Levophed. Consult cardiology, serial enzymes, serial EKGs, echo, try to resume his home meds. PROGNOSIS: Extremely guarded at best. ZULEYKA JOSE DO DR: MARA/delta JOB#: [id number] / [id number]
[2017-03-31] MEDS: MORPHINE SULFATE 2 MG/ML DISP.SYRIN. IV PRN (21:40)
[2017-04-01] VITALS (33 sets, daily range): BP systolic 74–118; BP diastolic 49–85
[2017-04-01] MEDS: PIPERACILLIN/TAZOBACTAM 3.375 GM in IV NORMAL SALINE 50ML 50 ML IV SCH ×2 (00:07→05:55)
[2017-04-01] MEDS: MORPHINE SULFATE 2 MG/ML DISP.SYRIN. IV PRN (00:08)
[2017-04-01] MEDS: NOREPINEPHRIN PREMIX 250 ML IV PRN ×4 (01:33→21:27)
--- NOTE | 2017-04-01 04:27 | CONS ---
DATE OF CONSULTATION: 03/31/2017 ATTENDING PHYSICIAN: Dr. Ortega Watt DICTATING PHYSICIAN: Aroldo Bowman MD REASON FOR CONSULTATION: The patient seen in pulmonary consultation at the request of Dr. Watt for acute respiratory failure requiring noninvasive ventilation with BiPAP. HISTORY OF PRESENT ILLNESS: The patient is an 81-year-old that has a history of COPD and congestive heart failure, presented with 2-3 day history of increasing shortness of air. He was seen in the Emergency Room, normally wears 4.5 liters of oxygen. He was found to have saturations of the 80s, increased work of breathing. He was placed on CPAP and transferred to the Emergency Room. The patient was seen in the Intensive Care Unit. Upon my evaluation, he was off of CPAP and was having difficulty breathing. He denies fever, chills, or cough, mostly nonproductive. The patient states he has been more short of breath over the last several days. He was seen by Cardiology and was found to have new onset paroxysmal atrial fibrillation. He has been given some Lasix. He is hypotensive and is currently on some Levophed. There was also possibility of sepsis. He has been given some antibiotics. PAST MEDICAL HISTORY: Remarkable for paroxysmal AFib, coronary artery disease, congestive heart failure, previous ejection fraction of 20%, hypertension, he has had a previous non-ST segment elevation [place] back in 01/2016, hyperlipidemia, COPD, chronic respiratory failure, normally on oxygen supplementation at 4.5 liters. He also has severe pulmonary hypertension, previous pulmonary artery pressures were calculated 62 mmHg. In addition, he has a history of osteoarthritis. PAST SURGICAL HISTORY: Previous left heart catheterization with stents. FAMILY HISTORY: No family history of lung disorders. SOCIAL HISTORY: He smokes less than a pack of cigarettes a day. MEDICATIONS: His current medications lists were reviewed. REVIEW OF SYSTEMS: As indicated above, otherwise review of systems could not be adequately reviewed as a consequence of his respiratory status. PHYSICAL EXAMINATION: GENERAL: The patient was in the Intensive Care Unit, currently on BiPAP, in mild respiratory distress. HEENT: Eyes, the sclerae were nonicteric. NECK: Jugular venous distention was elevated. No lymphadenopathy. CHEST: Full expansion. LUNGS: Bilateral coarse breath sounds with scattered rhonchi. CARDIOVASCULAR: Regular rate and rhythm with S1, S2, no S3. ABDOMEN: Soft, nontender, nondistended. EXTREMITIES: No clubbing, cyanosis. Minimal edema. NEUROLOGIC: The patient was awake, alert, following commands. A detailed neuro exam was not performed. LABORATORY DATA: White count was 9.1. Electrolytes were noted. BUN was normal. Creatinine was normal. BNP was elevated. Albumin was low. Urine was noted. His troponin level was elevated at 3.5. IMAGING STUDY: Chest x-ray was reviewed; there is bilateral pulmonary infiltrates compatible with CHF. IMPRESSION: 1. Pnfhe-yr-syrojmt hypoxemic respiratory failure. 2. Pcodh-yu-zjwwkjn congestive heart failure. 3. Paroxysmal atrial fibrillation. 4. Secondary pulmonary hypertension. 5. Increase lactic acid level, suspect secondary to increased work of breathing, doubt sepsis. 6. Elevated troponin level per Cardiology. 7. Coronary artery disease with previous stent placement. 8. Ischemic cardiomyopathy, ejection fraction calculated 20%. PLAN: 1. We will continue supportive with BiPAP. 2. Empiric antibiotics for now. 3. Support with pressors to show that mean arterial pressure above 60. 4. Follow cardiology input. 5. We will continue BiPAP. 6. I discussed the above with the patient, he is a do not resuscitate candidate does not wish to be intubated or resuscitated. I do appreciate the privilege in sharing in the patient's care. Total cumulative critical care time of 40 minutes. AROLDO BOWMAN MD DR: MAKAYLA/delta JOB#: [id number] / [id number]
[2017-04-01 04:57] LABS: CALCIUM 10.4 mg/dL (8.5-10.1); CREATININE 1.5 mg/dL (0.7-1.3); GFR 44.9; MAGNESIUM 2.4 mg/dL (1.8-2.4); POTASSIUM 5.1 mmol/L (3.5-5.1)
--- NOTE | 2017-04-01 09:15 | PDOC ---
PULMONARY PROGRESS NOTES Subjective FEELS BETTER LESS SOA Vitals Vital Signs Date Time Temp Pulse Resp B/P (MAP) Pulse Ox O2 Delivery O2 Flow Rate FiO2 04/01/17 07:00 135 15 92/74 (80) 94 Venturi Mask 12.0 04/01/17 04:00 97.6 97.6 ROS: No Nausea, No Chest Pain, No Abdominal Pain, No Increase Cough Lungs: Clear Cardiovascular: S1, S2 Abdomen: Soft Neuro Exam: Alert Extremities: No Edema Skin: Warm Labs Laboratory Tests Test 03/31/17 09:32 03/31/17 10:45 03/31/17 12:15 03/31/17 12:55 White Blood Count 9.1 x10^3/uL (4.0-11.0) Red Blood Count 3.95 x10^6/uL (4.30-5.70) Hemoglobin 11.5 g/dL (13.0-17.5) Hematocrit 35.0 % (39.0-53.0) Mean Corpuscular Volume 89 fL (79-100) Mean Corpuscular Hemoglobin 29 pg (25-35) Mean Corpuscular Hemoglobin Concent 33 g/dL (31-37) Red Cell Distribution Width 16.4 % (11.5-14.5) Platelet Count 181 x10^3/uL (140-400) Neutrophils (%) (Auto) 92 % (31-73) Lymphocytes (%) (Auto) 3 % (24-48) Monocytes (%) (Auto) 4 % (0-9) Eosinophils (%) (Auto) 0 % (0-3) Basophils (%) (Auto) 0 % (0-3) Neutrophils # (Auto) 8.4 x10^3uL (1.8-7.7) Lymphocytes # (Auto) 0.3 x10^3/uL (1.0-4.8) Monocytes # (Auto) 0.3 x10^3/uL (0.0-1.1) Eosinophils # (Auto) 0.0 x10^3/uL (0.0-0.7) Basophils # (Auto) 0.0 x10^3/uL (0.0-0.2) Segmented Neutrophils % 89 % (35-66) Band Neutrophils % 5 % (0-9) Lymphocytes % 4 % (24-48) Monocytes % 1 % (0-10) Eosinophils % 1 % (0-5) Platelet Estimate Adequate (ADEQUATE) Anisocytosis Present Sodium Level 137 mmol/L (136-145) Potassium Level 4.9 mmol/L (3.5-5.1) Chloride Level 100 mmol/L (98-107) Carbon Dioxide Level 27 mmol/L (21-32) Anion Gap 10 (6-14) Blood Urea Nitrogen 20 mg/dL (8-26) Creatinine 1.2 mg/dL (0.7-1.3) Estimated GFR (Cockcroft-Gault) 58.1 BUN/Creatinine Ratio 17 (6-20) Glucose Level 125 mg/dL (70-99) Lactic Acid Level 3.4 mmol/L (0.4-2.0) Calcium Level 9.9 mg/dL (8.5-10.1) Magnesium Level 2.1 mg/dL (1.8-2.4) Total Bilirubin 0.9 mg/dL (0.2-1.0) Aspartate Amino Transf (AST/SGOT) 49 U/L (15-37) Alanine Aminotransferase (ALT/SGPT) 35 U/L (16-63) Alkaline Phosphatase 130 U/L (46-116) Troponin I Quantitative 0.433 ng/mL (0.000-0.055) VQ-Uya-E-Type Natriuretic Peptide 27267 pg/mL (0-449) Total Protein 7.4 g/dL (6.4-8.2) Albumin 3.0 g/dL (3.4-5.0) Albumin/Globulin Ratio 0.7 (1.0-1.7) O2 Saturation 96 % (92-99) Arterial Blood pH 7.43 (7.35-7.45) Arterial Blood pCO2 at Patient Temp 33 mmHg (35-46) Arterial Blood pO2 at Patient Temp 90 mmHg (65-108) Arterial Blood HCO3 22 mmol/L (21-28) Arterial Blood Base Excess -2 mmol/L (-3-3) Oxyhemoglobin 95.5 % Methemoglobin 0.6 % (0.0-1.9) Carbon Monoxide, Quantitative 0.1 % (0.0-1.9) FiO2 40.0 Nasal Screen MRSA (PCR) Negative (Negative) Urine Collection Type Unknown Urine Color Keila Urine Clarity Turbid Urine pH 5.5 Urine Specific [place] 1.025 Urine Protein Negative mg/dL (NEG-TRACE) Urine Glucose (UA) Negative mg/dL (NEG) Urine Ketones (Stick) Negative mg/dL (NEG) Urine Blood Negative (NEG) Urine Nitrite Negative (NEG) Urine Bilirubin Negative (NEG) Urine Urobilinogen Dipstick 0.2 mg/dL (0.2 mg/dL) Urine Leukocyte Esterase Negative (NEG) Urine RBC 0 /HPF (0-2) Urine WBC 1-4 /HPF (0-4) Urine Squamous Epithelial Cells Few /LPF Urine Transitional Epithelial Cells Few /LPF Urine Amorphous Sediment Present /HPF Urine Bacteria 0 /HPF (0-FEW) Urine Hyaline Casts Many /HPF Urine Mucus Mod /LPF Test 03/31/17 13:10 03/31/17 17:15 03/31/17 23:00 03/31/17 23:04 Lactic Acid Level 3.1 mmol/L (0.4-2.0) Troponin I Quantitative 3.585 ng/mL (0.000-0.055) 5.362 ng/mL (0.000-0.055) 5.504 ng/mL (0.000-0.055) Glucose (Fingerstick) 205 mg/dL (70-99) Test 04/01/17 03:55 Sodium Level 138 mmol/L (136-145) Potassium Level 5.1 mmol/L (3.5-5.1) Chloride Level 102 mmol/L (98-107) Carbon Dioxide Level 24 mmol/L (21-32) Anion Gap 12 (6-14) Blood Urea Nitrogen 35 mg/dL (8-26) Creatinine 1.5 mg/dL (0.7-1.3) Estimated GFR (Cockcroft-Gault) 44.9 Glucose Level 150 mg/dL (70-99) Calcium Level 10.4 mg/dL (8.5-10.1) Magnesium Level 2.4 mg/dL (1.8-2.4) Laboratory Tests Test 03/31/17 09:32 03/31/17 10:45 03/31/17 12:15 03/31/17 12:55 White Blood Count 9.1 x10^3/uL (4.0-11.0) Red Blood Count 3.95 x10^6/uL (4.30-5.70) Hemoglobin 11.5 g/dL (13.0-17.5) Hematocrit 35.0 % (39.0-53.0) Mean Corpuscular Volume 89 fL (79-100) Mean Corpuscular Hemoglobin 29 pg (25-35) Mean Corpuscular Hemoglobin Concent 33 g/dL (31-37) Red Cell Distribution Width 16.4 % (11.5-14.5) Platelet Count 181 x10^3/uL (140-400) Neutrophils (%) (Auto) 92 % (31-73) Lymphocytes (%) (Auto) 3 % (24-48) Monocytes (%) (Auto) 4 % (0-9) Eosinophils (%) (Auto) 0 % (0-3) Basophils (%) (Auto) 0 % (0-3) Neutrophils # (Auto) 8.4 x10^3uL (1.8-7.7) Lymphocytes # (Auto) 0.3 x10^3/uL (1.0-4.8) Monocytes # (Auto) 0.3 x10^3/uL (0.0-1.1) Eosinophils # (Auto) 0.0 x10^3/uL (0.0-0.7) Basophils # (Auto) 0.0 x10^3/uL (0.0-0.2) Segmented Neutrophils % 89 % (35-66) Band Neutrophils % 5 % (0-9) Lymphocytes % 4 % (24-48) Monocytes % 1 % (0-10) Eosinophils % 1 % (0-5) Platelet Estimate Adequate (ADEQUATE) Anisocytosis Present Sodium Level 137 mmol/L (136-145) Potassium Level 4.9 mmol/L (3.5-5.1) Chloride Level 100 mmol/L (98-107) Carbon Dioxide Level 27 mmol/L (21-32) Anion Gap 10 (6-14) Blood Urea Nitrogen 20 mg/dL (8-26) Creatinine 1.2 mg/dL (0.7-1.3) Estimated GFR (Cockcroft-Gault) 58.1 BUN/Creatinine Ratio 17 (6-20) Glucose Level 125 mg/dL (70-99) Lactic Acid Level 3.4 mmol/L (0.4-2.0) Calcium Level 9.9 mg/dL (8.5-10.1) Magnesium Level 2.1 mg/dL (1.8-2.4) Total Bilirubin 0.9 mg/dL (0.2-1.0) Aspartate Amino Transf (AST/SGOT) 49 U/L (15-37) Alanine Aminotransferase (ALT/SGPT) 35 U/L (16-63) Alkaline Phosphatase 130 U/L (46-116) Troponin I Quantitative 0.433 ng/mL (0.000-0.055) LE-Kcr-H-Type Natriuretic Peptide 99409 pg/mL (0-449) Total Protein 7.4 g/dL (6.4-8.2) Albumin 3.0 g/dL (3.4-5.0) Albumin/Globulin Ratio 0.7 (1.0-1.7) O2 Saturation 96 % (92-99) Arterial Blood pH 7.43 (7.35-7.45) Arterial Blood pCO2 at Patient Temp 33 mmHg (35-46) Arterial Blood pO2 at Patient Temp 90 mmHg (65-108) Arterial Blood HCO3 22 mmol/L (21-28) Arterial Blood Base Excess -2 mmol/L (-3-3) Oxyhemoglobin 95.5 % Methemoglobin 0.6 % (0.0-1.9) Carbon Monoxide, Quantitative 0.1 % (0.0-1.9) FiO2 40.0 Nasal Screen MRSA (PCR) Negative (Negative) Urine Collection Type Unknown Urine Color Keila Urine Clarity Turbid Urine pH 5.5 Urine Specific [place] 1.025 Urine Protein Negative mg/dL (NEG-TRACE) Urine Glucose (UA) Negative mg/dL (NEG) Urine Ketones (Stick) Negative mg/dL (NEG) Urine Blood Negative (NEG) Urine Nitrite Negative (NEG) Urine Bilirubin Negative (NEG) Urine Urobilinogen Dipstick 0.2 mg/dL (0.2 mg/dL) Urine Leukocyte Esterase Negative (NEG) Urine RBC 0 /HPF (0-2) Urine WBC 1-4 /HPF (0-4) Urine Squamous Epithelial Cells Few /LPF Urine Transitional Epithelial Cells Few /LPF Urine Amorphous Sediment Present /HPF Urine Bacteria 0 /HPF (0-FEW) Urine Hyaline Casts Many /HPF Urine Mucus Mod /LPF Test 03/31/17 13:10 03/31/17 17:15 03/31/17 23:00 03/31/17 23:04 Lactic Acid Level 3.1 mmol/L (0.4-2.0) Troponin I Quantitative 3.585 ng/mL (0.000-0.055) 5.362 ng/mL (0.000-0.055) 5.504 ng/mL (0.000-0.055) Glucose (Fingerstick) 205 mg/dL (70-99) Test 04/01/17 03:55 Sodium Level 138 mmol/L (136-145) Potassium Level 5.1 mmol/L (3.5-5.1) Chloride Level 102 mmol/L (98-107) Carbon Dioxide Level 24 mmol/L (21-32) Anion Gap 12 (6-14) Blood Urea Nitrogen 35 mg/dL (8-26) Creatinine 1.5 mg/dL (0.7-1.3) Estimated GFR (Cockcroft-Gault) 44.9 Glucose Level 150 mg/dL (70-99) Calcium Level 10.4 mg/dL (8.5-10.1) Magnesium Level 2.4 mg/dL (1.8-2.4) Medications Active Scripts Medications Dose Route/Sig Max Daily Dose Days Date Category Mirapex (Pramipexole Di-Hcl) 0.25 Mg Tablet 1 Tab PO QHS 03/31/17 Reported Lisinopril 2.5 Mg Tablet 1 Tab PO DAILY 03/31/17 Reported Lasix (Furosemide) 40 Mg Tablet 1 Tab PO DAILY 03/31/17 Reported Spiriva (Tiotropium Hayes) 18 Mcg Cap.w.dev 2 Inh IH DAILY 03/31/17 Reported Striverdi Respimat (Olodaterol HCl) 4 Gm Mist.inhal 4 Gm IH BID 02/02/17 Reported Aspirin 81 Mg Tab.chew 1 Tab PO DAILY 02/02/17 Reported Atorvastatin Calcium 40 Mg Tablet 40 Mg PO HS 02/02/17 Reported Tamsulosin Hcl 0.4 Mg Cap.er.24h 0.4 Mg PO BID 02/02/17 Reported Finasteride 5 Mg Tablet 5 Mg PO DAILY 02/02/17 Reported Impression . 1. Plxod-sz-gahvult hypoxemic respiratory failure. 2. Xhmrx-xz-rduxvun congestive heart failure. 3. Paroxysmal atrial fibrillation. 4. Secondary pulmonary hypertension. 5. Increase lactic acid level, suspect secondary to increased work of breathing, doubt sepsis. 6. Elevated troponin level per Cardiology. 7. Coronary artery disease with previous stent placement. 8. Ischemic cardiomyopathy, ejection fraction calculated 20%. Plan . D/W PALLIATIVE CARE WEAN PRESSORS POSSIBLE HOME IN AM WITH HOSPICE WILL DEESCALATE ANTIBX 1. We will continue supportive with BiPAP. 2. Deescalate antibx 3. Wean pressors 4. Follow cardiology input. 5. We will continue BiPAP. 6. I discussed the above with the patient, he is a do not resuscitate candidate does not wish to be intubated or resuscitated. AROLDO BOWMAN MD Apr 01, 2017 09:15
[2017-04-01] MEDS: VANCOMYCIN PER PHARMACY MC PRN (09:17)
--- NOTE | 2017-04-01 10:11 | PDOC3 ---
Discharge Summary Visit Information Date of Admission: Mar 31, 2017 Date of Discharge: Apr 01, 2017 Admitting Diagnosis Comment: 1. Xcwxu-fd-dpxjlsv hypoxemic respiratory failure. 2. Vpyer-ja-uorjxnz congestive heart failure. 3. Paroxysmal atrial fibrillation. 4. Secondary pulmonary hypertension. 5. Increase lactic acid level, suspect secondary to increased work of breathing, doubt sepsis. 6. Elevated troponin level per Cardiology. 7. Coronary artery disease with previous stent placement. 8. Ischemic cardiomyopathy, ejection fraction calculated 20%. 9., DNR/DNI - home hospice Final Diagnosis Problems Medical Problems: (1) CHF exacerbation Status: Acute (2) COPD exacerbation Status: Acute (3) Respiratory failure Status: Acute (4) Severe sepsis Status: Acute Brief Hospital Course Allergies Allergies Coded Allergies Type Severity Reaction Last Updated Verified No Known Drug Allergies 02/02/17 No Vital Signs Vital Signs Date Time Temp Pulse Resp B/P (MAP) Pulse Ox O2 Delivery O2 Flow Rate FiO2 04/01/17 10:00 132 40 91/74 (80) 93 Venturi Mask 12.0 04/01/17 08:00 97.6 97.6 Lab Results Laboratory Tests Test 03/31/17 09:32 03/31/17 10:45 03/31/17 12:15 03/31/17 12:55 White Blood Count 9.1 x10^3/uL (4.0-11.0) Red Blood Count 3.95 x10^6/uL (4.30-5.70) Hemoglobin 11.5 g/dL (13.0-17.5) Hematocrit 35.0 % (39.0-53.0) Mean Corpuscular Volume 89 fL (79-100) Mean Corpuscular Hemoglobin 29 pg (25-35) Mean Corpuscular Hemoglobin Concent 33 g/dL (31-37) Red Cell Distribution Width 16.4 % (11.5-14.5) Platelet Count 181 x10^3/uL (140-400) Neutrophils (%) (Auto) 92 % (31-73) Lymphocytes (%) (Auto) 3 % (24-48) Monocytes (%) (Auto) 4 % (0-9) Eosinophils (%) (Auto) 0 % (0-3) Basophils (%) (Auto) 0 % (0-3) Neutrophils # (Auto) 8.4 x10^3uL (1.8-7.7) Lymphocytes # (Auto) 0.3 x10^3/uL (1.0-4.8) Monocytes # (Auto) 0.3 x10^3/uL (0.0-1.1) Eosinophils # (Auto) 0.0 x10^3/uL (0.0-0.7) Basophils # (Auto) 0.0 x10^3/uL (0.0-0.2) Segmented Neutrophils % 89 % (35-66) Band Neutrophils % 5 % (0-9) Lymphocytes % 4 % (24-48) Monocytes % 1 % (0-10) Eosinophils % 1 % (0-5) Platelet Estimate Adequate (ADEQUATE) Anisocytosis Present Sodium Level 137 mmol/L (136-145) Potassium Level 4.9 mmol/L (3.5-5.1) Chloride Level 100 mmol/L (98-107) Carbon Dioxide Level 27 mmol/L (21-32) Anion Gap 10 (6-14) Blood Urea Nitrogen 20 mg/dL (8-26) Creatinine 1.2 mg/dL (0.7-1.3) Estimated GFR (Cockcroft-Gault) 58.1 BUN/Creatinine Ratio 17 (6-20) Glucose Level 125 mg/dL (70-99) Lactic Acid Level 3.4 mmol/L (0.4-2.0) Calcium Level 9.9 mg/dL (8.5-10.1) Magnesium Level 2.1 mg/dL (1.8-2.4) Total Bilirubin 0.9 mg/dL (0.2-1.0) Aspartate Amino Transf (AST/SGOT) 49 U/L (15-37) Alanine Aminotransferase (ALT/SGPT) 35 U/L (16-63) Alkaline Phosphatase 130 U/L (46-116) Troponin I Quantitative 0.433 ng/mL (0.000-0.055) NX-Toj-O-Type Natriuretic Peptide 25054 pg/mL (0-449) Total Protein 7.4 g/dL (6.4-8.2) Albumin 3.0 g/dL (3.4-5.0) Albumin/Globulin Ratio 0.7 (1.0-1.7) O2 Saturation 96 % (92-99) Arterial Blood pH 7.43 (7.35-7.45) Arterial Blood pCO2 at Patient Temp 33 mmHg (35-46) Arterial Blood pO2 at Patient Temp 90 mmHg (65-108) Arterial Blood HCO3 22 mmol/L (21-28) Arterial Blood Base Excess -2 mmol/L (-3-3) Oxyhemoglobin 95.5 % Methemoglobin 0.6 % (0.0-1.9) Carbon Monoxide, Quantitative 0.1 % (0.0-1.9) FiO2 40.0 Nasal Screen MRSA (PCR) Negative (Negative) Urine Collection Type Unknown Urine Color Keila Urine Clarity Turbid Urine pH 5.5 Urine Specific [place] 1.025 Urine Protein Negative mg/dL (NEG-TRACE) Urine Glucose (UA) Negative mg/dL (NEG) Urine Ketones (Stick) Negative mg/dL (NEG) Urine Blood Negative (NEG) Urine Nitrite Negative (NEG) Urine Bilirubin Negative (NEG) Urine Urobilinogen Dipstick 0.2 mg/dL (0.2 mg/dL) Urine Leukocyte Esterase Negative (NEG) Urine RBC 0 /HPF (0-2) Urine WBC 1-4 /HPF (0-4) Urine Squamous Epithelial Cells Few /LPF Urine Transitional Epithelial Cells Few /LPF Urine Amorphous Sediment Present /HPF Urine Bacteria 0 /HPF (0-FEW) Urine Hyaline Casts Many /HPF Urine Mucus Mod /LPF Test 03/31/17 13:10 03/31/17 17:15 03/31/17 23:00 03/31/17 23:04 Lactic Acid Level 3.1 mmol/L (0.4-2.0) Troponin I Quantitative 3.585 ng/mL (0.000-0.055) 5.362 ng/mL (0.000-0.055) 5.504 ng/mL (0.000-0.055) Glucose (Fingerstick) 205 mg/dL (70-99) Test 04/01/17 03:55 Sodium Level 138 mmol/L (136-145) Potassium Level 5.1 mmol/L (3.5-5.1) Chloride Level 102 mmol/L (98-107) Carbon Dioxide Level 24 mmol/L (21-32) Anion Gap 12 (6-14) Blood Urea Nitrogen 35 mg/dL (8-26) Creatinine 1.5 mg/dL (0.7-1.3) Estimated GFR (Cockcroft-Gault) 44.9 Glucose Level 150 mg/dL (70-99) Calcium Level 10.4 mg/dL (8.5-10.1) Magnesium Level 2.4 mg/dL (1.8-2.4) Laboratory Tests Test 03/31/17 10:45 03/31/17 12:15 03/31/17 12:55 03/31/17 13:10 O2 Saturation 96 % (92-99) Arterial Blood pH 7.43 (7.35-7.45) Arterial Blood pCO2 at Patient Temp 33 mmHg (35-46) Arterial Blood pO2 at Patient Temp 90 mmHg (65-108) Arterial Blood HCO3 22 mmol/L (21-28) Arterial Blood Base Excess -2 mmol/L (-3-3) Oxyhemoglobin 95.5 % Methemoglobin 0.6 % (0.0-1.9) Carbon Monoxide, Quantitative 0.1 % (0.0-1.9) FiO2 40.0 Nasal Screen MRSA (PCR) Negative (Negative) Urine Collection Type Unknown Urine Color Keila Urine Clarity Turbid Urine pH 5.5 Urine Specific [place] 1.025 Urine Protein Negative mg/dL (NEG-TRACE) Urine Glucose (UA) Negative mg/dL (NEG) Urine Ketones (Stick) Negative mg/dL (NEG) Urine Blood Negative (NEG) Urine Nitrite Negative (NEG) Urine Bilirubin Negative (NEG) Urine Urobilinogen Dipstick 0.2 mg/dL (0.2 mg/dL) Urine Leukocyte Esterase Negative (NEG) Urine RBC 0 /HPF (0-2) Urine WBC 1-4 /HPF (0-4) Urine Squamous Epithelial Cells Few /LPF Urine Transitional Epithelial Cells Few /LPF Urine Amorphous Sediment Present /HPF Urine Bacteria 0 /HPF (0-FEW) Urine Hyaline Casts Many /HPF Urine Mucus Mod /LPF Lactic Acid Level 3.1 mmol/L (0.4-2.0) Troponin I Quantitative 3.585 ng/mL (0.000-0.055) Test 03/31/17 17:15 03/31/17 23:00 03/31/17 23:04 04/01/17 03:55 Troponin I Quantitative 5.362 ng/mL (0.000-0.055) 5.504 ng/mL (0.000-0.055) Glucose (Fingerstick) 205 mg/dL (70-99) Sodium Level 138 mmol/L (136-145) Potassium Level 5.1 mmol/L (3.5-5.1) Chloride Level 102 mmol/L (98-107) Carbon Dioxide Level 24 mmol/L (21-32) Anion Gap 12 (6-14) Blood Urea Nitrogen 35 mg/dL (8-26) Creatinine 1.5 mg/dL (0.7-1.3) Estimated GFR (Cockcroft-Gault) 44.9 Glucose Level 150 mg/dL (70-99) Calcium Level 10.4 mg/dL (8.5-10.1) Magnesium Level 2.4 mg/dL (1.8-2.4) Brief Hospital Course Mr. Geronimo is a 81 old [sex] who presented with [ ]SOA, LOng chronic medical illnesses, see above. 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 Discharge Information Condition at Discharge: Improved, Stable Disposition/Orders: D/C to Home w/ HH Scheduled Aspirin (Aspirin), 1 TAB PO DAILY, (Reported) Atorvastatin Calcium (Atorvastatin Calcium), 40 MG PO HS, (Reported) Finasteride (Finasteride), 5 MG PO DAILY, (Reported) Furosemide (Lasix), 1 TAB PO DAILY, (Reported) Lisinopril (Lisinopril), 1 TAB PO DAILY, (Reported) Olodaterol HCl (Striverdi Respimat), 4 GM IH BID, (Reported) Pramipexole Di-Hcl (Mirapex), 1 TAB PO QHS, (Reported) Tamsulosin Hcl (Tamsulosin Hcl), 0.4 MG PO BID, (Reported) Tiotropium [place] (Spiriva), 2 INH IH DAILY, (Reported) Discontinued Medications Furosemide (Furosemide), 1 TAB PO DAILY, (Reported) Metoprolol Succinate (Metoprolol Succinate ( Xl )), 25 MG PO DAILY, (Reported) TIEN GUAMAN MD Apr 01, 2017 10:11
[2017-04-01] MEDS ORDERED: VANCOMYCIN 750 MG in IV NORMAL SALINE 250ML 250 ML IV SCH (11:00)
--- NOTE | 2017-04-01 11:27 | PDOC2 ---
PALLIATIVE CARE Palliative Care Note Palliative Care Patient alert, oriented x 3. Understands his medical condition and is able to verbalize his wishes. On Venti-mask. Discussed options of comfort care vs continuation of current aggressive treatment, DNR/DNI. Patient adamant about wanting to go home with hospice. IP hospice discussed--patient would rather go home with hospice. Met with DPOA Keyon Jones and rn mds Ifeoma Brasher. Reviewed medical condition---CHF; Respiratory Failure. EF 20% Patient has one sister---Poonam. Lives in [place] and is not involved in his care. Patient would like to go home. Understands Levophed will be titrated off. Comfort medications available and changed to SL. Both Keyon and Ifeoma assist with his caregiving and also work part-time. They will need to make arrangements for his care. Confirmed DNR/DNI. Outside the Hospital DNR/DNI signed by Mr. Jones. Copy of Living Will placed on record. Ifeoma is familiar with Hospice and would like to have their support. Mr. Ta is in agreement DME: Hospital Bed. Oxygen, BSC Plan: Home with Hospice tomorrow. Wean off Levophed today and change comfort medications to SL. DNR/DNI Emily BARON and Dr. Molina, Dr. Joseph and Veronica Greene APRN--cardiology. aware of plan. GIULIANO FERGUSON Apr 01, 2017 11:27
--- NOTE | 2017-04-01 12:01 | PDOC ---
CARDIO Progress Notes Date and Time Date of Service 04/01/2017 Time of Evaluation 1200 Subjective Subjective: No Chest Pain, No Palpitations, Other (cyanotic; denies pain ) Vitals Vitals Vital Signs Date Time Temp Pulse Resp B/P (MAP) Pulse Ox O2 Delivery O2 Flow Rate FiO2 04/01/17 11:00 137 30 99/61 (74) 97 Venturi Mask 12.0 04/01/17 08:00 97.6 97.6 Weight Weight [ ] Input and Output Intake and Output Intake and Output 04/01/17 07:00 Intake Total 2141.3 ml Output Total 620 ml Balance 1521.3 ml Intake Oral 240 ml IV Total 1901.3 ml Output Urine Total 620 ml Laboratory Labs Laboratory Tests Test 03/31/17 12:15 03/31/17 12:55 03/31/17 13:10 03/31/17 17:15 Nasal Screen MRSA (PCR) Negative (Negative) Urine Collection Type Unknown Urine Color Keila Urine Clarity Turbid Urine pH 5.5 Urine Specific [place] 1.025 Urine Protein Negative mg/dL (NEG-TRACE) Urine Glucose (UA) Negative mg/dL (NEG) Urine Ketones (Stick) Negative mg/dL (NEG) Urine Blood Negative (NEG) Urine Nitrite Negative (NEG) Urine Bilirubin Negative (NEG) Urine Urobilinogen Dipstick 0.2 mg/dL (0.2 mg/dL) Urine Leukocyte Esterase Negative (NEG) Urine RBC 0 /HPF (0-2) Urine WBC 1-4 /HPF (0-4) Urine Squamous Epithelial Cells Few /LPF Urine Transitional Epithelial Cells Few /LPF Urine Amorphous Sediment Present /HPF Urine Bacteria 0 /HPF (0-FEW) Urine Hyaline Casts Many /HPF Urine Mucus Mod /LPF Lactic Acid Level 3.1 mmol/L (0.4-2.0) Troponin I Quantitative 3.585 ng/mL (0.000-0.055) 5.362 ng/mL (0.000-0.055) Test 03/31/17 23:00 03/31/17 23:04 04/01/17 03:55 Troponin I Quantitative 5.504 ng/mL (0.000-0.055) Glucose (Fingerstick) 205 mg/dL (70-99) Sodium Level 138 mmol/L (136-145) Potassium Level 5.1 mmol/L (3.5-5.1) Chloride Level 102 mmol/L (98-107) Carbon Dioxide Level 24 mmol/L (21-32) Anion Gap 12 (6-14) Blood Urea Nitrogen 35 mg/dL (8-26) Creatinine 1.5 mg/dL (0.7-1.3) Estimated GFR (Cockcroft-Gault) 44.9 Glucose Level 150 mg/dL (70-99) Calcium Level 10.4 mg/dL (8.5-10.1) Magnesium Level 2.4 mg/dL (1.8-2.4) Microbiology Micro Microbiology 03/31/17 Blood Culture - Preliminary, Resulted NO GROWTH AFTER 1 DAY Physical Exam HEENT: Neck Supple W Full Motion Chest: Symmetric LUNGS: Other (coarse anteriorly) Heart: S1S2, irregularly irregular, other (tele: afib RVR) Abdomen: Soft N/T Extremities: No Edema Neurology: alert Assessment Assessment 1. acute on chronic systolic heart failure mild diuresis with lasix given X 2 yesterday exacerbated by respiratory failure 2. ? sepsis lactic acid 3.4; WBC WNL vasopressors for BP support - wean as tolerated; patient wants to go home with hospice 3. PAF rates to the 130s remains poorly controlled due to lung disease BP too low for BB or CCB; not a candidate for amiodarone 4. elevated troponin in the setting of sepsis, acute heart failure, acute respiratory failure and tachycardia severity of illness precludes aggressive evaluation/intervention 5. acute/chronic respiratory failure/severe pulm HTN on venti mask defer to pulm 6. CAD remote history of stents to unknown targets 7. presumed ischemic cardiomyopathy previously treated with BB; BP would not support ACEI Patient requesting hospice care- ? transfer home tomorrow if off Levophed Will follow peripherally; please contact for further assistance JULIANO ORTIZ APRN Apr 01, 2017 12:00
[2017-04-01] MEDS ORDERED: NOREPINEPHRIN PREMIX 250 ML IV ONE (13:30)
--- NOTE | 2017-04-01 15:36 | PDOC2 ---
PALLIATIVE CARE Palliative Care Note Palliative Care Patient had short run of v-tach. Unable to wean off Levophed. Attempted to call Ifeoma Brasher. DPOA Keyon Jones unavailable by phone. Patient has stated "Im ready to go" I know what's going on. Will try to reach caregiver and DPOA to discuss plan of care. Stephania aware of seriousness and that patient may prior to being able to go home. GIULIANO FERGUSON Apr 01, 2017 15:36
[2017-04-01] MEDS: LORazepam INTENSOL 2 MG/ML ORAL.CONC SL PRN (22:54)
[2017-04-02] VITALS (16 sets, daily range): BP systolic 63–109; BP diastolic 39–97
[2017-04-02] MEDS: NOREPINEPHRIN PREMIX 250 ML IV PRN (03:45)
[2017-04-02] MEDS: MORPHINE SULFATE 2 MG/ML DISP.SYRIN. IV PRN ×2 (05:54→10:31)
--- NOTE | 2017-04-02 10:52 | PDOC ---
PROGRESS NOTES Chief Complaint Chief Complaint cc: respiratory failure A/P 1. Nspso-bj-kjpqnlm hypoxemic respiratory failure. 2. Lljxz-wr-shfrmay congestive heart failure. Systolic 3. Paroxysmal atrial fibrillation. 4. Secondary pulmonary hypertension. 5. ? sepsis. 6. NSTEMI type 2 7. Coronary artery disease with previous stent placement. 8. Ischemic cardiomyopathy, ejection fraction calculated 20%. 9., DNR/DNI - Plan d/w Pt and care management specialist, and Palliative team, DOPA contacted, all agreed for hospice care, Clinically he is declining, off pressor support, on comfort measures d/w RN d/w Pat, Palliative team RN Prognosis poor. Pt requested not to have any treatment on day 1. d/w RN. IV morphine for sob. prn Vitals Vitals Vital Signs Date Time Temp Pulse Resp B/P (MAP) Pulse Ox O2 Delivery O2 Flow Rate FiO2 04/02/17 10:31 31 100 Nasal Cannula 3.0 04/02/17 10:00 130 79/61 (67) 04/02/17 08:00 98.5 98.5 Physical Exam General: Alert, severe distress Heart: Normal S1, Normal S2, Other (2/6 systolic murmur LLSB; unable to auscultate for carotid bruits over respiratory sounds) Lungs: Clear Abdomen: Normal bowel sounds, Soft Extremities: No edema, Normal pulses Skin: No rashes Assessment and Plan Assessmemt and Plan Problems Medical Problems: (1) CHF exacerbation Status: Acute (2) COPD exacerbation Status: Acute (3) Respiratory failure Status: Acute (4) Severe sepsis Status: Acute Problems: Comment Review of Relevant I have reviewed the following items bess (where applicable) has been applied. Labs Laboratory Tests Test 03/31/17 12:15 03/31/17 12:55 03/31/17 13:10 03/31/17 17:15 Nasal Screen MRSA (PCR) Negative (Negative) Urine Collection Type Unknown Urine Color Keila Urine Clarity Turbid Urine pH 5.5 Urine Specific [place] 1.025 Urine Protein Negative mg/dL (NEG-TRACE) Urine Glucose (UA) Negative mg/dL (NEG) Urine Ketones (Stick) Negative mg/dL (NEG) Urine Blood Negative (NEG) Urine Nitrite Negative (NEG) Urine Bilirubin Negative (NEG) Urine Urobilinogen Dipstick 0.2 mg/dL (0.2 mg/dL) Urine Leukocyte Esterase Negative (NEG) Urine RBC 0 /HPF (0-2) Urine WBC 1-4 /HPF (0-4) Urine Squamous Epithelial Cells Few /LPF Urine Transitional Epithelial Cells Few /LPF Urine Amorphous Sediment Present /HPF Urine Bacteria 0 /HPF (0-FEW) Urine Hyaline Casts Many /HPF Urine Mucus Mod /LPF Lactic Acid Level 3.1 mmol/L (0.4-2.0) Troponin I Quantitative 3.585 ng/mL (0.000-0.055) 5.362 ng/mL (0.000-0.055) Test 03/31/17 23:00 03/31/17 23:04 04/01/17 03:55 Troponin I Quantitative 5.504 ng/mL (0.000-0.055) Glucose (Fingerstick) 205 mg/dL (70-99) Sodium Level 138 mmol/L (136-145) Potassium Level 5.1 mmol/L (3.5-5.1) Chloride Level 102 mmol/L (98-107) Carbon Dioxide Level 24 mmol/L (21-32) Anion Gap 12 (6-14) Blood Urea Nitrogen 35 mg/dL (8-26) Creatinine 1.5 mg/dL (0.7-1.3) Estimated GFR (Cockcroft-Gault) 44.9 Glucose Level 150 mg/dL (70-99) Calcium Level 10.4 mg/dL (8.5-10.1) Magnesium Level 2.4 mg/dL (1.8-2.4) Microbiology 03/31/17 Blood Culture - Preliminary, Resulted NO GROWTH AFTER 1 DAY Medications Current Medications Sodium Chloride 1,000 ml @ 500 mls/hr Q2H IV Last administered on 03/31/17 09: 38; Start 03/31/17 at 09:32; Stop 03/31/17 at 11:31; Status DC Albuterol/ Ipratropium (Duoneb) 3 ml 1X ONCE NEB Last administered on 09:40; Start 03/31/17 at 09:45; Stop 03/31/17 at 09:46; Status DC Methylprednisolone Sodium Succinate (SOLU-Medrol 125MG VIAL) 125 mg 1X ONCE IV Last administered on 03/31/17 09:40; Start 03/31/17 at 09:45; Stop 03/31/17 at 09:46; Status DC Fentanyl Citrate (Fentanyl 2ml Vial) 25 mcg 1X ONCE IV Last administered on 09:39; Start 03/31/17 at 09:45; Stop 03/31/17 at 09:46; Status DC Sodium Chloride 1,620 ml @ 540 mls/hr Q3H IV Last administered on 03/31/17 10: 23; Start 03/31/17 at 10:19; Stop 03/31/17 at 10:25; Status DC Sodium Chloride 1,000 ml @ 125 mls/hr Q8H IV Last administered on 03/31/17 11: 15; Start 03/31/17 at 10:30; Stop 03/31/17 at 13:19; Status DC Vancomycin HCl (Vanco Per Pharmacy) 1 each PRN DAILY PRN MC SEE COMMENTS Last administered on 04/01/17 09:17; Start 03/31/17 at 10:30; Stop 04/01/17 at 10:05; Status DC Piperacillin Sod/ Tazobactam Sod (Zosyn Per Pharmacy) 1 each PRN DAILY PRN MC SEE COMMENTS; Start 03/31/17 at 10:30; Stop 04/01/17 at 10:05; Status DC Levofloxacin/ Dextrose (Levaquin Per Pharmacy) 1 each PRN DAILY PRN MC SEE COMMENTS; Start 03/31/17 at 10:30; Stop 04/01/17 at 10:05; Status DC Levofloxacin/ Dextrose 100 ml @ 100 mls/hr 1X ONCE IV Last administered on 11:04; Start 03/31/17 at 10:45; Stop 03/31/17 at 11:44; Status DC Vancomycin HCl 1.25 gm/Sodium Chloride 250 ml @ 166.667 mls/hr 1X ONCE IV Last administered on 03/31/17 12:23; Start 03/31/17 at 11:00; Stop 03/31/17 at 12: 29; Status DC Piperacillin Sod/ Tazobactam Sod 3.375 gm/Sodium Chloride 50 ml @ 100 mls/hr 1X ONCE IV Last administered on 03/31/17 10:58; Start 03/31/17 at 11:00; Stop 03/31/17 at 11:29; Status DC Ondansetron HCl (Zofran) 4 mg PRN Q8HRS PRN IV NAUSEA/VOMITING; Start 03/31/17 at 11:15; Stop 04/01/17 at 11:14; Status DC Fentanyl Citrate (Fentanyl 2ml Vial) 25 mcg PRN Q2HR PRN IV PAIN Last administered on 03/31/17 16:36; Start 03/31/17 at 11:15; Stop 04/01/17 at 11:14; Status DC Acetaminophen (Tylenol) 650 mg PRN Q4HRS PRN PO FEVER; Start 03/31/17 at 11:15; Stop 04/01/17 at 11:14; Status DC Enoxaparin Sodium (Lovenox 60mg Syringe) 50 mg 1X ONCE SQ Last administered on 03/31/17 11:31; Start 03/31/17 at 11:15; Stop 03/31/17 at 11:18; Status DC Norepinephrine Bitartrate 250 ml @ 0 mls/hr 1X ONCE IV Last administered on 11:26; Start 03/31/17 at 11:15; Stop 03/31/17 at 11:19; Status DC Furosemide (Lasix) 20 mg 1X ONCE IVP Last administered on 03/31/17 12:50; Start 03/31/17 at 12:45; Stop 03/31/17 at 12:46; Status DC Digoxin (Lanoxin) 500 mcg 1X ONCE IV Last administered on 03/31/17 12:54; Start 03/31/17 at 12:45; Stop 03/31/17 at 12:46; Status DC Vancomycin HCl 750 mg/Sodium Chloride 250 ml @ 250 mls/hr Q24H IV ; Start at 11:00; Stop 04/01/17 at 11:00; Status DC Vancomycin HCl 1 each 1X ONCE MC ; Start 04/02/17 at 10:30; Stop 04/02/17 at 10: 30; Status DC Levofloxacin/ Dextrose 150 ml @ 100 mls/hr Q48H IV ; Start 04/02/17 at 11:00; Stop 04/02/17 at 11:00; Status DC Piperacillin Sod/ Tazobactam Sod 3.375 gm/Sodium Chloride 50 ml @ 100 mls/hr Q6HRS IV Last administered on 04/01/17 05:55; Start 03/31/17 at 18:00; Stop 04/01 at 10:05; Status DC Furosemide (Lasix) 20 mg 1X ONCE IVP Last administered on 03/31/17 18:15; Start 03/31/17 at 18:00; Stop 03/31/17 at 18:01; Status DC Norepinephrine Bitartrate 250 ml @ As Directed STK-MED ONCE IV ; Start 03/31/17 at 16:22; Stop 03/31/17 at 16:23; Status DC Norepinephrine Bitartrate 250 ml @ 0 mls/hr CONT PRN IV SEE I/O RECORD Last administered on 04/01/17 07:32; Start 03/31/17 at 16:30; Stop 04/01/17 at 10:05; Status DC Morphine Sulfate 2 mg PRN Q2HR PRN IV PAIN Last administered on 04/02/17 10:31 ; Start 03/31/17 at 16:45 Morphine Sulfate (Roxanol Conc) 20 mg PRN Q3HRS PRN SL PAIN; Start 04/01/17 at 10:15 Lorazepam (Ativan Intensol) 2 mg PRN Q6HRS PRN SL ANXIETY / AGITATION Last administered on 04/01/17 22:54; Start 04/01/17 at 10:15 Norepinephrine Bitartrate 250 ml @ As Directed STK-MED ONCE IV ; Start 04/01/17 at 13:30; Stop 04/01/17 at 13:31; Status DC Norepinephrine Bitartrate 250 ml @ 0 mls/hr CONT PRN IV SEE I/O RECORD Last administered on 04/02/17 03:45; Start 04/01/17 at 13:45 Active Scripts Active Reported Mirapex (Pramipexole Di-Hcl) 0.25 Mg Tablet 1 Tab PO QHS Lisinopril 2.5 Mg Tablet 1 Tab PO DAILY Lasix (Furosemide) 40 Mg Tablet 1 Tab PO DAILY Spiriva (Tiotropium [place]) 18 Mcg Cap.w.dev 2 Inh IH DAILY Striverdi Respimat (Olodaterol HCl) 4 Gm Mist.inhal 4 Gm IH BID Aspirin 81 Mg Tab.chew 1 Tab PO DAILY Atorvastatin Calcium 40 Mg Tablet 40 Mg PO HS Tamsulosin Hcl 0.4 Mg Cap.er.24h 0.4 Mg PO BID Finasteride 5 Mg Tablet 5 Mg PO DAILY Vitals/I & O Vital Sign - Last 24 Hours 04/01/17 04/01/17 04/01/17 04/01/17 11:00 12:00 12:00 12:59 Temp 98.5 98.5 Pulse 137 140 137 Resp 30 33 36 B/P (MAP) 99/61 (74) 82/64 (70) 78/59 (65) Pulse Ox 97 98 96 O2 Delivery Venturi Mask Venturi Mask Venturi Mask Venturi Mask O2 Flow Rate 12.0 12.0 12.0 12.0 04/01/17 04/01/17 04/01/17 04/01/17 14:00 15:00 16:00 16:00 Pulse 141 141 145 Resp 19 35 39 B/P (MAP) 92/69 (77) 86/78 (81) 92/71 (78) Pulse Ox 97 97 95 O2 Delivery Venturi Mask Venturi Mask Venturi Mask Venturi Mask O2 Flow Rate 12.0 12.0 12.0 12.0 04/01/17 04/01/17 04/01/17 04/01/17 17:00 18:00 19:00 19:15 Pulse 138 142 139 148 Resp 32 33 30 32 B/P (MAP) 84/64 (71) 92/64 (73) 75/54 (61) 79/65 (70) Pulse Ox 95 95 98 98 O2 Delivery Venturi Mask Venturi Mask Venturi Mask Venturi Mask O2 Flow Rate 12.0 12.0 12.0 12.0 04/01/17 04/01/17 04/01/17 04/01/17 19:30 19:45 19:45 20:00 Temp 98.6 98.6 Pulse 146 148 146 Resp 30 36 30 B/P (MAP) 74/77 (76) 96/77 (83) 100/78 (85) Pulse Ox 98 98 98 O2 Delivery Venturi Mask Venturi Mask Venturi Mask Venturi Mask O2 Flow Rate 12.0 12.0 12.0 12.0 04/01/17 04/01/17 04/01/17 04/01/17 20:15 20:30 20:45 21:00 Pulse 144 146 146 144 Resp 32 32 34 32 B/P (MAP) 100/80 (87) 92/72 (79) 90/77 (81) 98/74 (82) Pulse Ox 98 98 99 98 O2 Delivery Venturi Mask Venturi Mask Venturi Mask Venturi Mask O2 Flow Rate 12.0 12.0 12.0 12.0 04/01/17 04/01/17 04/01/17 04/01/17 21:30 21:45 22:00 23:00 Pulse 148 146 146 146 Resp 38 38 30 30 B/P (MAP) 108/77 (87) 87/64 (72) 92/71 (78) 86/68 (74) Pulse Ox 97 96 98 99 O2 Delivery Venturi Mask Venturi Mask Venturi Mask Venturi Mask O2 Flow Rate 12.0 12.0 12.0 12.0 04/01/17 04/01/17 04/02/17 04/02/17 23:59 23:59 01:00 02:00 Temp 98.0 98.0 Pulse 132 140 124 Resp 32 38 30 B/P (MAP) 77/63 (68) 82/58 (66) 85/63 (70) Pulse Ox 98 97 94 O2 Delivery Venturi Mask Venturi Mask Venturi Mask Nasal Cannula O2 Flow Rate 12.0 12.0 12.0 3.0 04/02/17 04/02/17 04/02/17 04/02/17 03:00 04:00 04:00 05:00 Temp 98.4 98.4 Pulse 122 107 120 Resp 34 34 30 B/P (MAP) 71/51 (58) 71/58 (62) 91/70 (77) Pulse Ox 99 98 99 O2 Delivery Nasal Cannula Nasal Cannula Nasal Cannula Nasal Cannula O2 Flow Rate 3.0 3.0 3.0 3.0 04/02/17 04/02/17 04/02/17 04/02/17 05:54 06:00 06:20 07:00 Pulse 139 125 Resp 30 36 30 36 B/P (MAP) 92/75 (81) 91/75 (80) Pulse Ox 100 97 99 100 O2 Delivery Nasal Cannula Nasal Cannula Nasal Cannula Nasal Cannula O2 Flow Rate 3.0 3.0 3.0 3.0 04/02/17 04/02/17 04/02/17 04/02/17 08:00 08:00 09:00 10:00 Temp 98.5 98.5 Pulse 90 57 130 Resp 18 19 34 B/P (MAP) 80/91 (87) 64/46 (52) 79/61 (67) O2 Delivery Nasal Cannula Nasal Cannula Nasal Cannula Nasal Cannula O2 Flow Rate 3.0 3.0 3.0 3.0 04/02/17 10:31 Resp 31 Pulse Ox 100 O2 Delivery Nasal Cannula O2 Flow Rate 3.0 Intake and Output 04/01/17 04/01/17 04/02/17 14:59 22:59 06:59 Intake Total 100 ml 240 ml 1444 ml Output Total 175 ml 500 ml 250 ml Balance -75 ml -260 ml 1194 ml RACHID MARKS MD Apr 02, 2017 10:52
--- NOTE | 2017-04-02 12:23 | PDOC ---
PULMONARY PROGRESS NOTES Subjective FEELS BETTER LESS SOA Vitals Vital Signs Date Time Temp Pulse Resp B/P (MAP) Pulse Ox O2 Delivery O2 Flow Rate FiO2 04/02/17 11:01 11 Nasal Cannula 3.0 04/02/17 11:00 110 63/97 (86) 04/02/17 10:31 100 04/02/17 08:00 98.5 98.5 ROS: No Nausea, No Chest Pain, No Abdominal Pain, No Increase Cough Lungs: Clear Cardiovascular: S1, S2 Abdomen: Soft Neuro Exam: Alert Extremities: No Edema Skin: Warm Labs Laboratory Tests Test 03/31/17 12:55 03/31/17 13:10 03/31/17 17:15 03/31/17 23:00 Urine Collection Type Unknown Urine Color [place] Urine Clarity Turbid Urine pH 5.5 Urine Specific [place] 1.025 Urine Protein Negative mg/dL (NEG-TRACE) Urine Glucose (UA) Negative mg/dL (NEG) Urine Ketones (Stick) Negative mg/dL (NEG) Urine Blood Negative (NEG) Urine Nitrite Negative (NEG) Urine Bilirubin Negative (NEG) Urine Urobilinogen Dipstick 0.2 mg/dL (0.2 mg/dL) Urine Leukocyte Esterase Negative (NEG) Urine RBC 0 /HPF (0-2) Urine WBC 1-4 /HPF (0-4) Urine Squamous Epithelial Cells Few /LPF Urine Transitional Epithelial Cells Few /LPF Urine Amorphous Sediment Present /HPF Urine Bacteria 0 /HPF (0-FEW) Urine Hyaline Casts Many /HPF Urine Mucus Mod /LPF Lactic Acid Level 3.1 mmol/L (0.4-2.0) Troponin I Quantitative 3.585 ng/mL (0.000-0.055) 5.362 ng/mL (0.000-0.055) 5.504 ng/mL (0.000-0.055) Test 03/31/17 23:04 04/01/17 03:55 Glucose (Fingerstick) 205 mg/dL (70-99) Sodium Level 138 mmol/L (136-145) Potassium Level 5.1 mmol/L (3.5-5.1) Chloride Level 102 mmol/L (98-107) Carbon Dioxide Level 24 mmol/L (21-32) Anion Gap 12 (6-14) Blood Urea Nitrogen 35 mg/dL (8-26) Creatinine 1.5 mg/dL (0.7-1.3) Estimated GFR (Cockcroft-Gault) 44.9 Glucose Level 150 mg/dL (70-99) Calcium Level 10.4 mg/dL (8.5-10.1) Magnesium Level 2.4 mg/dL (1.8-2.4) Medications Active Scripts Medications Dose Route/Sig Max Daily Dose Days Date Category Mirapex (Pramipexole Di-Hcl) 0.25 Mg Tablet 1 Tab PO QHS 03/31/17 Reported Lisinopril 2.5 Mg Tablet 1 Tab PO DAILY 03/31/17 Reported Lasix (Furosemide) 40 Mg Tablet 1 Tab PO DAILY 03/31/17 Reported Spiriva (Tiotropium [place]) 18 Mcg Cap.w.dev 2 Inh IH DAILY 03/31/17 Reported Striverdi Respimat (Olodaterol HCl) 4 Gm Mist.inhal 4 Gm IH BID 02/02/17 Reported Aspirin 81 Mg Tab.chew 1 Tab PO DAILY 02/02/17 Reported Atorvastatin Calcium 40 Mg Tablet 40 Mg PO HS 02/02/17 Reported Tamsulosin Hcl 0.4 Mg Cap.er.24h 0.4 Mg PO BID 02/02/17 Reported Finasteride 5 Mg Tablet 5 Mg PO DAILY 02/02/17 Reported Impression . 1. Wlpok-jj-lrpwdge hypoxemic respiratory failure. 2. Iibas-ii-roegkse congestive heart failure. 3. Paroxysmal atrial fibrillation. 4. Secondary pulmonary hypertension. 5. Increase lactic acid level, suspect secondary to increased work of breathing, doubt sepsis. 6. Elevated troponin level per Cardiology. 7. Coronary artery disease with previous stent placement. 8. Ischemic cardiomyopathy, ejection fraction calculated 20%. Plan . D/W PALLIATIVE CARE OFF PRESSORS HOME AM WITH HOSPICE OFF ANTIBX D/W AROLDO SELLERS MD Apr 02, 2017 12:23
--- NOTE | 2017-04-02 13:56 | PDOC2 ---
PALLIATIVE CARE Palliative Care Note Palliative Care Patient resting. Had 40 sec period of apnea earlier this am. Tanya -- caregiver at bedside at that time. Tanya understands patient wants to go home. Also asked Tanya if she "wants to go house hunting" KEYON Ta is not available by phone to discuss transfer risk. B/P 68/56. RR 13. Spoke with Dr Moralez this am. Will plan to transfer out of ICU with comfort care. GIULIANO FERGUSON Apr 02, 2017 13:56
[2017-04-02] MEDS: LORazepam INTENSOL 2 MG/ML ORAL.CONC SL PRN (21:46)
[2017-04-03] MEDS: MORPHINE SULFATE 20 MG/ML CONC SOLUTION. SL PRN ×3 (00:17→19:39)
[2017-04-03 03:00] VITALS: BP 79/58
[2017-04-03 07:00] VITALS: BP 112/62
[2017-04-03 11:00] VITALS: BP 105/62
[2017-04-03] MEDS: LORazepam INTENSOL 2 MG/ML ORAL.CONC SL PRN ×2 (11:46→17:19)
--- NOTE | 2017-04-03 14:00 | PDOC ---
PULMONARY PROGRESS NOTES Subjective FEELS BETTER LESS SOA Vitals Vital Signs Date Time Temp Pulse Resp B/P (MAP) Pulse Ox O2 Delivery O2 Flow Rate FiO2 04/03/17 11:00 97.5 98 20 105/62 (76) 100 Nasal Cannula 4.0 97.5 ROS: No Nausea, No Chest Pain, No Abdominal Pain, No Increase Cough Lungs: Clear Cardiovascular: S1, S2 Abdomen: Soft Neuro Exam: Alert Extremities: No Edema Skin: Warm Medications Active Scripts Medications Dose Route/Sig Max Daily Dose Days Date Category Mirapex (Pramipexole Di-Hcl) 0.25 Mg Tablet 1 Tab PO QHS 03/31/17 Reported Lisinopril 2.5 Mg Tablet 1 Tab PO DAILY 03/31/17 Reported Lasix (Furosemide) 40 Mg Tablet 1 Tab PO DAILY 03/31/17 Reported Spiriva (Tiotropium [place]) 18 Mcg Cap.w.dev 2 Inh IH DAILY 03/31/17 Reported Striverdi Respimat (Olodaterol HCl) 4 Gm Mist.inhal 4 Gm IH BID 02/02/17 Reported Aspirin 81 Mg Tab.chew 1 Tab PO DAILY 02/02/17 Reported Atorvastatin Calcium 40 Mg Tablet 40 Mg PO HS 02/02/17 Reported Tamsulosin Hcl 0.4 Mg Cap.er.24h 0.4 Mg PO BID 02/02/17 Reported Finasteride 5 Mg Tablet 5 Mg PO DAILY 02/02/17 Reported Impression . 1. Qfxbg-sb-enezsrd hypoxemic respiratory failure. 2. Gabhg-ql-jbjcqru congestive heart failure. 3. Paroxysmal atrial fibrillation. 4. Secondary pulmonary hypertension. 5. Increase lactic acid level, suspect secondary to increased work of breathing, doubt sepsis. 6. Elevated troponin level per Cardiology. 7. Coronary artery disease with previous stent placement. 8. Ischemic cardiomyopathy, ejection fraction calculated 20%. Plan . PT RESP STATUS IS COMPENSATED, NO DISTRESS AT THIS TIME OFF PRESSORS OFF ANTIBX AROLDO BOWMAN MD Apr 03, 2017 14:00
[2017-04-03 15:00] VITALS: BP 100/62
[2017-04-03 19:38] VITALS: BP 123/71
[2017-04-03 23:23] VITALS: BP 126/85
--- NOTE | 2017-04-04 00:06 | DS ---
DATE OF DISCHARGE: 04/03/2017 ADMISSION DIAGNOSES: Multifactorial respiratory failure including aspiration pneumonia, COPD and acute on chronic systolic and diastolic heart failure. DISCHARGE DIAGNOSIS: Chronic respiratory failure. The patient is going home with hospice. HOSPITAL COURSE: The patient is a pleasant 81-year-old male who presented 3 days ago with severe respiratory failure. He was placed on BiPAP and admitted to the ICU. We gave him antibiotics, breathing treatments, oxygen, steroids, Lasix, but nonetheless he is still quite sick, he is still aspirating and choking. The family has decided on hospice. The patient was seen and examined this morning. DISPOSITION: Home with hospice. ACTIVITY: Bed rest. DIET: Low sodium. MEDICATIONS: Please see the MRAD. TOTAL TIME ON DISCHARGE: 32 minutes. ZULEYKA JOSE DO DR: MARA/delta JOB#: [id number] / [id number]
[2017-04-04 02:55] VITALS: BP 116/71
[2017-04-04] MEDS: MORPHINE SULFATE 2 MG/ML DISP.SYRIN. IV PRN ×3 (03:06→15:00)
[2017-04-04] MEDS: LORazepam INTENSOL 2 MG/ML ORAL.CONC SL PRN ×3 (03:06→14:59)
--- NOTE | 2017-04-04 06:39 | PN ---
DATE: 04/03/2017 SUBJECTIVE: The patient was seen and examined this morning. OBJECTIVE: HEART: Normal S1, S2. LUNGS: Coarse. He has got coarse cough. ABDOMEN: Soft, decreased bowel sounds. EXTREMITIES: 1+ edema. SKIN: Very thin and frail. PLAN: We will plan to discharge him with hospice. Please see the dictated discharge summary. ZULEYKA JOSE DO DR: MARA/delta JOB#: [id number] / [id number]
[2017-04-04 07:32] VITALS: BP 116/80
--- NOTE | 2017-04-04 09:44 | PDOC ---
PROGRESS NOTES Chief Complaint Chief Complaint Respiratory failure A/P 1. Hhgzk-mz-frpcivs hypoxemic respiratory failure. 2. Agput-tm-lkuopjf congestive heart failure. Systolic 3. Paroxysmal atrial fibrillation. 4. Secondary pulmonary hypertension. 5. ? sepsis. 6. NSTEMI type 2 7. Coronary artery disease with previous stent placement. 8. Ischemic cardiomyopathy, ejection fraction calculated 20%. 9. Dispo: pt wanted to go home with hospice, but no 24h support available. refer for inpt hospice; life expectancy <2 weeksm DNR/DNI History of Present Illness History of Present Illness resting in bed, minimal response to verbal input, no verbal himself Vitals Vitals Vital Signs Date Time Temp Pulse Resp B/P (MAP) Pulse Ox O2 Delivery O2 Flow Rate FiO2 04/04/17 07:32 98.8 98 24 116/80 (92) 92 Nasal Cannula 4.0 98.8 Physical Exam General: Other (resting in beed, appears comfortable) Heart: Regular rate Lungs: Other (UA rhonchi) Abdomen: Normal bowel sounds, Soft, No tenderness Extremities: No edema Skin: No rashes JASS LEE MD Apr 04, 2017 09:44
[2017-04-04] MEDS ORDERED: MORP2CAR IV (09:51)
[2017-04-04] MEDS ORDERED: MORP100S3 SL (09:51)
[2017-04-04] MEDS ORDERED: LORA2ORA7 SL (09:51)
[2017-04-04] MEDS ORDERED: MORPHINE SULFATE 20 MG/ML CONC SOLUTION. SL PRN ×4 (10:00→11:00)
--- NOTE | 2017-04-04 10:13 | PDOC ---
PULMONARY PROGRESS NOTES Subjective confused, coughs, will go to hospice Vitals Vital Signs Date Time Temp Pulse Resp B/P (MAP) Pulse Ox O2 Delivery O2 Flow Rate FiO2 04/04/17 07:32 98.8 98 24 116/80 (92) 92 Nasal Cannula 4.0 98.8 General: Confused Lungs: Other (UA rhonchi) Cardiovascular: S1, S2 Abdomen: Soft Extremities: No Edema Skin: Warm Medications Active Scripts Medications Dose Route/Sig Max Daily Dose Days Date Category Mirapex (Pramipexole Di-Hcl) 0.25 Mg Tablet 1 Tab PO QHS 03/31/17 Reported Lisinopril 2.5 Mg Tablet 1 Tab PO DAILY 03/31/17 Reported Lasix (Furosemide) 40 Mg Tablet 1 Tab PO DAILY 03/31/17 Reported Spiriva (Tiotropium [place]) 18 Mcg Cap.w.dev 2 Inh IH DAILY 03/31/17 Reported Striverdi Respimat (Olodaterol HCl) 4 Gm Mist.inhal 4 Gm IH BID 02/02/17 Reported Aspirin 81 Mg Tab.chew 1 Tab PO DAILY 02/02/17 Reported Atorvastatin Calcium 40 Mg Tablet 40 Mg PO HS 02/02/17 Reported Tamsulosin Hcl 0.4 Mg Cap.er.24h 0.4 Mg PO BID 02/02/17 Reported Finasteride 5 Mg Tablet 5 Mg PO DAILY 02/02/17 Reported Impression . 1. Yjnty-fe-ptgfobk hypoxemic respiratory failure. 2. Nwgrs-di-miqgzpu congestive heart failure. 3. Paroxysmal atrial fibrillation. 4. Secondary pulmonary hypertension. 5. Increase lactic acid level, suspect secondary to increased work of breathing, doubt sepsis. 6. Elevated troponin level per Cardiology. 7. Coronary artery disease with previous stent placement. 8. Ischemic cardiomyopathy, ejection fraction calculated 20%. Plan . PT RESP STATUS IS COMPENSATED, NO DISTRESS AT THIS TIME OFF PRESSORS OFF ANTIBX to hospice discussed w primary, prognosis poor. will so but available for any help SANIA SAMS MD Apr 04, 2017 10:13
[2017-04-04] MEDS ORDERED: MORPHINE SULFATE 2 MG/ML DISP.SYRIN. IV PRN (10:15)
[2017-04-04 10:53] VITALS: BP 96/50
[2017-04-04 14:45] VITALS: BP 117/66
--- NOTE | 2017-04-14 09:47 | DS ---
DATE OF DISCHARGE: 04/03/2017 ADMISSION DIAGNOSES: Multifactorial respiratory failure including aspiration pneumonia, COPD and acute on chronic systolic and diastolic heart failure. DISCHARGE DIAGNOSIS: Chronic respiratory failure. The patient is going home with hospice. HOSPITAL COURSE: The patient is a pleasant 81-year-old male who presented 3 days ago with severe respiratory failure. He was placed on BiPAP and admitted to the ICU. We gave him antibiotics, breathing treatments, oxygen, steroids, Lasix, but nonetheless he is still quite sick, he is still aspirating and choking. The family has decided on hospice. The patient was seen and examined this morning. DISPOSITION: Home with hospice. ACTIVITY: Bed rest. DIET: Low sodium. MEDICATIONS: Please see the MRAD. ADDENDUM: The patient's POA is currently present and it became evident that no 24-hour care was available for the patient at home. Therefore, discharge plans were changed to inpatient hospice facility and the patient was discharged accordingly on 04/04/2017. For further info, please refer to note from same day. TOTAL TIME ON DISCHARGE: 32 minutes. ZULEYKA JOSE DO DR: MARA/delta JOB#: [id number] / [id number]
== END 2017-04-04 15:29 | disposition hospice, inpatient (51) | DRG 177 ==
LOC: ER 09:25 → 1 WEST ICU 10:50 → 6 SOUTH 04-02 14:40
PROVIDERS: ADMIT Internal Medicine; ATTEND Internal Medicine
PROC: 5A09357 Assistance with Respiratory Ventilation, Less than 24 Consecutive Hours, Continuous Positive Airway Pressure (ICD-10-PCS; principal; 2017-03-31)
DX: J69.0 Pneumonitis due to inhalation of food and vomit (principal); I21.4 Non-ST elevation (NSTEMI) myocardial infarction; I50.43 Acute on chronic combined systolic (congestive) and diastolic (congestive) heart failure; J96.21 Acute and chronic respiratory failure with hypoxia; J44.1 Chronic obstructive pulmonary disease with (acute) exacerbation; R65.10 Systemic inflammatory response syndrome (SIRS) of non-infectious origin without acute organ dysfunction; I25.5 Ischemic cardiomyopathy; I27.2 Other secondary pulmonary hypertension; I48.0 Paroxysmal atrial fibrillation; M19.90 Unspecified osteoarthritis, unspecified site; E78.5 Hyperlipidemia, unspecified; F17.210 Nicotine dependence, cigarettes, uncomplicated; I08.1 Rheumatic disorders of both mitral and tricuspid valves; I11.0 Hypertensive heart disease with heart failure; Z66 Do not resuscitate; I25.10 Atherosclerotic heart disease of native coronary artery without angina pectoris; I25.2 Old myocardial infarction; Z82.49 Family history of ischemic heart disease and other diseases of the circulatory system; Z83.3 Family history of diabetes mellitus; Z85.3 Personal history of malignant neoplasm of breast; Z95.5 Presence of coronary angioplasty implant and graft; Z51.5 Encounter for palliative care
CPT/HCPCS: 36415; 36600; 71010; 80048; 80053; 81001; 82805; 82962; 83605; 83735; 83880; 84484; 85007; 85027; 87040; 87641; 93005; 94640; 94660; 96361; 96365; 96368; 96372; 96375; J1160; J1650; J1956; J2270; J2543; J2930; J3010; J3370; J7030; J7050; J7620; 99291-25